=== PATIENT | female | born 1980 | race Caucasian/White ===

== ENCOUNTER 2018-10-08 16:12 | Inpatient (IN) | payer OTHER ==
[~2018-10-08] VITALS: Ht 165.1 cm; Wt 72.1 kg
--- NOTE | 2018-10-08 16:25 | NUR ---
While in ED, JASBIR Knox informed SW if she could see pt. since she is homeless. Pt. is a 38 year old Kittitian speaking woman who came to [facility] ED complaining of abdominal pain. ANATOLIY met with pt. in ED. Pt. was sitting in a chair waiting to be triaged. Administration staff assisted with Kittitian translation. Pt. states she is homeless. Pt. has been living in residential and is willing to go to a residential. Pt. is Diabetic and has been non-compliant with her insulin. Pt. was not yet examined by the ER physician. However, ANATOLIY did give pt. the [employer] [facility] list and explained the filler picker times and location. Pt. understood. Pt. was also given a TAP card and Homeless Patient Waiver Form was signed by the pt. in case pt. was discharged from the ED.
--- NOTE | 2018-10-08 16:51 | NUR ---
PT PRESENTED TO THE ER WITH A C/O ABD PAIN. PT WAS TRIAGED AND SEEN BY VOICE AND DATA TECHNICIAN. PT REC'D A TAP CARD AND USP INFORMATION.
--- NOTE | 2018-10-08 16:51 | NUR ---
PT IS NOW IN ER 7
[2018-10-08] MEDS ORDERED: ONDANSETRON HCL/PF 4 MG/2 ML VIAL IVP ONE (17:00)
[2018-10-08] MEDS ORDERED: IV NS 0.9% 1,000 ML BAG IV ONE ×2 (17:00→18:00)
[2018-10-08] MEDS ORDERED: MORPHINE SULFATE INJ 2 MG/ML DISP.SYRIN IV ONE (17:00)
--- NOTE | 2018-10-08 17:03 | NUR ---
BLOOD WAS DRAWN BY NEUROSURGICAL PHYSICIAN ASSISTANT.
[2018-10-08] MEDS ORDERED: ONDANSETRON HCL/PF 4 MG/2 ML VIAL ONE (17:06)
[2018-10-08] MEDS ORDERED: MORPHINE SULFATE INJ 4 MG/ML DISP.SYRIN ONE (17:06)
[2018-10-08 17:08] LABS: BASOPHILS % (AUTO) 0.2 % (0.0-2.0); EOSINOPHILS % (AUTO) 0.1 % (0.0-6.0); HEMATOCRIT 46 % (33-45); HEMOGLOBIN 14.8 g/dL (11.5-14.8); LYMPHOCYTES # (AUTO) 0.9 /CMM (0.8-4.8); LYMPHOCYTES % (AUTO) 5.3 % (20.0-44.0); MEAN CORPUSCULAR HGB CONC 32 g/dl (31.0-36.0); MEAN CORPUSCULAR VOLUME 93 fL (82-100); MONOCYTES # (AUTO) 0.9 /CMM (0.1-1.30); MONOCYTES % (AUTO) 5.5 % (2.0-12.0); NEUTROPHILS # (AUTO) 15.1 /CMM (1.8-8.9); NEUTROPHILS % (AUTO) 88.9 % (43.0-81.0); PLATELET COUNT (AUTO) 327 /CMM (150-450); RED BLOOD CELL COUNT(AUTO) 4.92 MIL/uL (4.0-5.2)
--- NOTE | 2018-10-08 17:12 | NUR ---
PT REC'D ALL MEDICATION ORDERED.
--- NOTE | 2018-10-08 17:14 | NUR ---
URINAL GIVEN BUT UNABLE TO PROVIDE URINE SPECIMEN.
[2018-10-08 17:30] LABS: CALCIUM, SERUM 8.8 mg/dL (8.5-10.1); CREATININE 0.8 mg/dL (0.6-1.3); POTASSIUM 4.3 mmol/L (3.5-5.1)
[2018-10-08 17:37] LABS: BILIRUBIN,DIRECT 0.1 mg/dL (0.0-0.2); BILIRUBIN,TOTAL 0.6 mg/dL (0.2-1.0)
[2018-10-08 17:38] LABS: ALBUMIN 3.6 g/dL (3.4-5.0); TOTAL PROTEIN, SERUM 8.2 g/dL (6.4-8.2)
[2018-10-08] MEDS ORDERED: INSULIN REGULAR, HUMAN 100 UNIT/ML 10 ML VIAL ONE (17:48)
[2018-10-08] MEDS ORDERED: INSULIN REGULAR, HUMAN 100 UNIT/ML 10 ML VIAL SQ ONE (18:00)
[2018-10-08 18:06] LABS: ABG BASE EXCESS -18.7 mmol/L; ABG OXYGEN SATURATION 96.4 % (92.0-98.5); ABG PCO2 22.5 mmHg (35.0-45.0); ABG PH 7.167 (7.350-7.450); AaDO2 19.8 mmHg; COHb 0.7 % (0.5-1.5); MetHb 0.5 % (0.0-1.5); O2Hb 95.2 % (94.0-97.0); SITE, ABG Left Brachial; VENT MODE, BG ROOM AIR
--- NOTE | 2018-10-08 18:35 | NUR ---
REPEAT ACCUCHECK OF 259MG/DL, BLANCA MICHELLE AWARE.
[2018-10-08 18:47] LABS: APPEARANCE,URINE Clear (CLEAR); BILIRUBIN,URINE Negative (NEGATIVE); BLOOD, URINE Negative Ery/uL (NEGATIVE); COLOR,URINE Yellow (YELLOW); KETONES,URINE >=160 (NEGATIVE); LEUKOCYTE ESTERASE ,URINE Negative (NEGATIVE); NITRITE, URINE Negative (NEGATIVE); PROTEIN,URINE 100 mg/dl (NEGATIVE); UGLUCOSE 500 MG/DL mg/dL (NEGATIVE); UROBILINOGEN,URINE 0.2 EU/dL (0.2)
[2018-10-08 18:56] LABS: BACTERIA,URINE Few /HPF (None Seen); RBC,URINE 0-2 /HPF (0-2); SQUAMOUS EPITHELIAL CELL,UR Few /HPF (None Seen)
--- NOTE | 2018-10-08 19:01 | NUR ---
CALLED FOR ICU BED
--- NOTE | 2018-10-08 19:15 | NUR ---
PT IS WHEELED TO CT SCAN VIA [facility].
--- NOTE | 2018-10-08 19:23 | NUR ---
REPORT GIVEN TO KELSEY HO FOR CHANDLER.
--- NOTE | 2018-10-08 19:26 | NUR ---
REC'D REPORT FROM KELSEY SEGAL FOR CHANDLER
--- NOTE | 2018-10-08 19:56 | NUR ---
PT RESTING COMFORTABLY IN BED. VSS, NO COMPLAINTS AT THIS TIME.
--- NOTE | 2018-10-08 20:45 | NUR ---
BED 256
--- NOTE | 2018-10-08 21:06 | NUR ---
REPORT GIVEN TO KELSEY CAMPOS FOR 256
--- NOTE | 2018-10-08 21:08 | NUR ---
PT IS HOMELESS, DOES NOT HAVE ANY HOME MEDS
--- NOTE | 2018-10-08 21:20 | NUR ---
ICU/RN- ADMITTED THIS 38 Y/O FEMALE FROM ER PER ACLS PROTOCOL, ROUTINE ICU ADMISSION CARE INITIATED. NURSING FOCUS:ALTERED NUTRITION R/T DIAGNOSIS DKA,HYPONATREMIA SECONDARY TO HYPOVOLEMIA. PT. IS AWAKE, ALERT, EXPRESSIVE OF NEEDS. PT. C/O ABDOMINAL PAIN, 04/23. WILL MEDICATE W/ PRN DILAUDID LATONIA. AND WILL REASSESS PRN EFFECTIVENESS. AFEBRILE. PTT. IS A FULL CODE. WILL START INSULIN DRIP PER DKA PROTOCOL.
--- NOTE | 2018-10-08 21:25 | NUR ---
PT TRANSFERRED TO FLOOR. REFUSED TO PUT ON GOWN
[2018-10-08] MEDS ORDERED: MAG HYDROX/AL HYDROX/SIMETH 30 ML UDC PO PRN (21:30)
[2018-10-08] MEDS ORDERED: MAGNESIUM HYDROXIDE 30 ML UDC PO PRN (21:30)
[2018-10-08] MEDS ORDERED: ACETAMINOPHEN 325 MG TABLET PO PRN (21:30)
[2018-10-08] MEDS ORDERED: ZOLPIDEM TARTRATE 5 MG TABLET PO PRN (21:30)
[2018-10-08 21:35] VITALS: BP 139/80
[2018-10-08] MEDS: IV NS 0.9% 1,000 ML IV PRN (21:46)
[2018-10-08] MEDS ORDERED: INSULIN REGULAR, HUMAN 100 UNIT/ML 3 ML VIAL ONE (21:55)
[2018-10-08] MEDS: HYDROMORPHONE INJ 2 MG/ML DISP.SYRIN IV PRN (21:55)
[2018-10-08 22:00] VITALS: BP 154/70
[2018-10-08] MEDS: BLOOD SUGAR DIAGNOSTIC 1 EACH STRIP IN SCH ×2 (22:17→23:04)
[2018-10-08] MEDS: INSULIN REGULAR, HUMAN 100 UNIT in IV NS 0.9% 99 ML IV PRN ×2 (22:19)
[2018-10-08 22:30] VITALS: BP 127/71
[2018-10-08 23:00] VITALS: BP 119/68
--- NOTE | 2018-10-08 23:48 | NUR ---
ICU/RN- SLEEPING AROUSABLE, REMAINS ON INSULIN DRIP AT 1 UNIT/HR PER DKA PROTOCOL. REPORT GIVEN TO KELSEY MONTES FOR CONTINUATION OF CARE.
[2018-10-09] VITALS (27 sets, daily range): BP systolic 104–149; BP diastolic 60–98
[2018-10-09] MEDS: BLOOD SUGAR DIAGNOSTIC 1 EACH STRIP IN SCH ×15 (00:12→23:00)
[2018-10-09 01:24] LABS: CALCIUM, SERUM 7.7 mg/dL (8.5-10.1); CREATININE 0.7 mg/dL (0.6-1.3); POTASSIUM 4.5 mmol/L (3.5-5.1)
[2018-10-09] MEDS: HYDROMORPHONE INJ 2 MG/ML DISP.SYRIN IV PRN ×4 (04:33→23:11)
[2018-10-09 04:38] LABS: BASOPHILS % (AUTO) 0.2 % (0.0-2.0); EOSINOPHILS % (AUTO) 0.7 % (0.0-6.0); HEMATOCRIT 39 % (33-45); HEMOGLOBIN 12.5 g/dL (11.5-14.8); LYMPHOCYTES # (AUTO) 1.7 /CMM (0.8-4.8); LYMPHOCYTES % (AUTO) 17.9 % (20.0-44.0); MEAN CORPUSCULAR HGB CONC 33 g/dl (31.0-36.0); MEAN CORPUSCULAR VOLUME 93 fL (82-100); MONOCYTES # (AUTO) 0.9 /CMM (0.1-1.30); MONOCYTES % (AUTO) 8.8 % (2.0-12.0); NEUTROPHILS # (AUTO) 7.1 /CMM (1.8-8.9); NEUTROPHILS % (AUTO) 72.4 % (43.0-81.0); PLATELET COUNT (AUTO) 278 /CMM (150-450); RED BLOOD CELL COUNT(AUTO) 4.17 MIL/uL (4.0-5.2); WHITE BLOOD COUNT (AUTO) 9.8 K/uL (4.3-11.0)
[2018-10-09 04:55] LABS: CALCIUM, SERUM 7.6 mg/dL (8.5-10.1); CREATININE 0.6 mg/dL (0.6-1.3); MAGNESIUM 1.7 mg/dL (1.8-2.4); PHOSPHORUS 2.5 mg/dL (2.5-4.9); POTASSIUM 4.3 mmol/L (3.5-5.1)
[2018-10-09 05:06] LABS: THYROID STIMULATING HORMONE 0.963 uIU/mL (0.358-3.74)
[2018-10-09] MEDS: IV NS 0.9% 1,000 ML IV PRN ×3 (05:16→21:54)
--- NOTE | 2018-10-09 07:23 | NUR ---
RN NOTES PATIENT REMAINED IN STABLE CONDITION CONTINUE ON INSULIN DRIP AT 0.5 UNIT/HR. LAST BS = 190 MG/DL , ALGORITHM 1 CONTINUE TO FOLLOW. SILKE MONITOR REMAINED IN ST HR 103 . AFEBRILE. PT REMAINED COMPLIANT. IVF O GOING. ALL NEEDS ATTENDED NO CHANGE OF MENTAL STATUS THROUGHOUT THE SHIFT. KEPT PT CLEAN AND DRY. ENDORSED CONTINUITY OF CARE TO AM NURSE.
[2018-10-09] MEDS: ONDANSETRON HCL/PF 4 MG/2 ML VIAL IVP PRN ×2 (07:54→23:00)
--- NOTE | 2018-10-09 08:00 | NUR ---
BLOCKERS SKIVER NOTES PATIENT SLEEPING BUT EASILY AROUSABLE TO VERBAL AND TACITLY STIMULI ,ON INSULIN DRIP AT 0.5 UNIT/HR. PER HOSPITAL PROTOCOL LAST BS = 190 MG/DL , ALGORITHM 1 CONTINUE TO FOLLOW. SILKE MONITOR REMAINED SR HR 91 . AFEBRILE.CONT ON IVF ORDERED, ALL NEEDS ATTENDED KEPT PT CLEAN AND DRY. LT FA HL AND RT HAND HL INTACT , BED IN LOWEST AND LOCKED POSITION , C\P HEADACHE AND NAUSEA ZOFRAN AND TYLENOL GIVEN, BED IN ,LOWEST AND LOCKED POSITION , CALL LIGHT WITHIN REACH , WILSON OF CARE DISUSED WITH PATIENT
[2018-10-09 08:26] LABS: CALCIUM, SERUM 7.7 mg/dL (8.5-10.1); CREATININE 0.6 mg/dL (0.6-1.3); POTASSIUM 4.3 mmol/L (3.5-5.1)
--- NOTE | 2018-10-09 08:49 | NUR ---
VALET NOTE DR MANCILLA AT BEDSIDE, CONT ON INSULIN DRIP ORDERED AWARE THAT PATIENT C\O NAUSEA AND HEADACHE ORDERED MOTRIN
[2018-10-09] MEDS: Magnesium 1GM/D5W 100ML PREMIX 100 ML IV SCH ×2 (08:55→09:57)
[2018-10-09] MEDS: IBUPROFEN 400 MG TABLET PO PRN (09:36)
--- NOTE | 2018-10-09 09:50 | NUR ---
WAITER/WAITRESS THIRD CLASS NOTE CONSENT FOR NM GASTRITIC EMPTING TEST OBTAINED, KEEP NPO AT THIS TIME, C\O STILL HEADACHE MOTRIN PO ORDERED OK WITH [employer] TO GIVE MOTRIN, ABLE TO URINE USING A BED STONE
--- NOTE | 2018-10-09 11:00 | NUR ---
CHECK OUT CLERK NOTE BLOOD SUGAR 247 MG\DL .INCREASED FROM 0.5 ML TO 1 UNITS\ML OF INSULIN DRIP ,WILL CONT TO MONITOR CLOSELY
--- NOTE | 2018-10-09 12:00 | NUR ---
FREIGHT AGENT NOTE REPORT GIVEN TO JULIO COLE
[2018-10-09] MEDS: PANTOPRAZOLE 40 MG VIAL IV SCH (12:47)
[2018-10-09 12:49] LABS: CALCIUM, SERUM 7.3 mg/dL (8.5-10.1); CREATININE 0.6 mg/dL (0.6-1.3); POTASSIUM 4.1 mmol/L (3.5-5.1)
[2018-10-09] MEDS: INSULIN REGULAR, HUMAN 100 UNIT in IV NS 0.9% 99 ML IV PRN ×2 (12:55)
--- NOTE | 2018-10-09 13:19 | NUR ---
DIRECTOR DIGITAL STRATEGY NOTES: INSULIN DRIP CONFIRMATION DR. ALVAREZ CALLED THROUGH [employer] AND NOTIFIED OF TRENDING BS ALONG WITH RECENT ANION GAP RESULT. PER MD "CONTINUE IV FLUIDS AT CURRENT RATE ALONG WITH PT'S CURRENT DRIP RATE ALGORITHM". PT'S 1300 BS WAS 246 AND IS CURRENTLY RECEIVING 1UN/HR PER ALGORITHM PROTOCOL. WILL CONTINUE TO MONITOR FIR S/S OF HYPO/HYPERGLYCEMIA
--- NOTE | 2018-10-09 15:30 | NUR ---
INCINERATOR PLANT LABORER NOTES: NUCLEAR MED PT TRANSPORTED DOWN TO NUCLEAR MED FOR GASTRIC EMPTYING STUDIES VIA ACLS TRANSPORT. VSS.
[2018-10-09 18:08] LABS: CALCIUM, SERUM 7.8 mg/dL (8.5-10.1); CREATININE 0.7 mg/dL (0.6-1.3); POTASSIUM 4.2 mmol/L (3.5-5.1)
--- NOTE | 2018-10-09 19:12 | NUR ---
SCRAP PICKER CLOSING NOTES PT REMAINS STABLE ON INSULIN DRIP. ALL NEEDS MET DURING SHIFT AND ORDERS CARRIED OUT ACCORDINGLY. ALL DUE MEDS GIVEN. PRN PAIN MEDICATION ADMINISTERED PT REPORTS OF A HEADACHE RATED 9/10. PRN CARE RENDERED. IV LINES REMAIN PATENT AND INTACT. PT CONTINUES TO TOLERATE NS INFUSION AND INSULIN DRIP WELL. INSULIN CURRENTLY INFUSION AT 2UNIT/HR PER ALGORITHM AND PT'S 1900 BS OF 266. SAFETY MEASURES REMAIN IN PLACE ENDORSE TO KELSEY QUIÑONEZ FOR CHANDLER
--- NOTE | 2018-10-09 19:30 | NUR ---
PNEUMATIC RIVETER NOTE RECEIVED PT A/O X3-4 IN BED WITH NOTED MILD AGITATION AND NICARAGUAN SPEAKING. ON ROOM AIR AND SATURATING 99%. BREATHING REGULAR AND UNLABORED. C/O HEADACHE 02/20 PAIN. PREVIOUS RN GAVE DILAUDID IV @ 1900 WITHOUT RELIEF AND PT ASKING FOR OTHER PAIN MEDICATION. WILL GIVE ALTERNATIVE MEDICATION FOR PAIN. IV FLUIDS AND INSULIN DRIP INFUSING AT THIS TIME. NO COMPLAIN OF NAUSEA/ VOMIT AT THIS TIME. CALL LIGHT WITHIN REACH. WILL CONTINUE TO MONITOR.
[2018-10-09] MEDS: HYDROCODONE/APAP 5/325MG 1 EACH TABLET PO PRN (20:00)
--- NOTE | 2018-10-09 21:59 | NUR ---
PROMOTIONS EXECUTIVE NOTE PT C/O ITCHING ALL OVER. SPOKE WITH WIRE HARNESS DESIGN ENGINEER DR LYNN WITH ORDERS FOR BENADRYL 25MG IVP Q6H PRN. ALSO RECEIVED ORDERS TO CHANGE INSULIN DRIP PROTOCOL TO BS X 1.5/100 AND BMP Q6H. ORDERS NOTED AND CARRIED OUT. WILL CONTINUE TO MONITOR.
[2018-10-09] MEDS ORDERED: INSULIN REGULAR, HUMAN 100 UNIT in IV NS 0.9% 99 ML IV PRN ×2 (22:00)
[2018-10-09] MEDS: diphenhydrAMINE HCL 50 MG/ML VIAL IV PRN (23:00)
[2018-10-10] VITALS (22 sets, daily range): BP systolic 98–150; BP diastolic 56–96
[2018-10-10 00:38] LABS: CALCIUM, SERUM 7.5 mg/dL (8.5-10.1); CREATININE 0.7 mg/dL (0.6-1.3); POTASSIUM 3.6 mmol/L (3.5-5.1)
[2018-10-10] MEDS: BLOOD SUGAR DIAGNOSTIC 1 EACH STRIP IN SCH ×8 (01:08→21:20)
[2018-10-10] MEDS: HYDROCODONE/APAP 5/325MG 1 EACH TABLET PO PRN (02:02)
[2018-10-10] MEDS: HYDROMORPHONE INJ 2 MG/ML DISP.SYRIN IV PRN ×5 (05:51→21:12)
[2018-10-10] MEDS: IV D5/0.45 NACL 1,000 ML IV PRN ×3 (06:00→21:12)
[2018-10-10 06:17] LABS: CALCIUM, SERUM 7.9 mg/dL (8.5-10.1); CREATININE 0.5 mg/dL (0.6-1.3); POTASSIUM 3.7 mmol/L (3.5-5.1)
--- NOTE | 2018-10-10 07:21 | NUR ---
VEHICLE INSPECTOR NOTE PT REMAINED STABLE DURING SHIFT. NO ACUTE DISTRESS NOTED. INSULIN DRIP STILL INFUSING. D5 1/2 NS INFUSING @125 ML/HR. ALL NEEDS ATTENDED TO PROMPTLY. ALL SAFETY MEASURES IN PLACE. CALL LIGHT WITHIN REACH. WILL ENDORSE TO NEXT SHIFT FOR CONTINUITY OF CARE.
[2018-10-10] MEDS: diphenhydrAMINE HCL 50 MG/ML VIAL IV PRN (07:52)
[2018-10-10] MEDS: ONDANSETRON HCL/PF 4 MG/2 ML VIAL IVP PRN ×2 (07:52→19:47)
[2018-10-10] MEDS ORDERED: DEXTROSE 50%-WATER 50 ML DISP.SYRIN IV PRN (08:00)
[2018-10-10] MEDS: INSULIN GLARGINE, 100 UNIT/ML CARTRIDGE SQ SCH ×2 (08:51→21:45)
[2018-10-10] MEDS: PANTOPRAZOLE 40 MG VIAL IV SCH (12:21)
[2018-10-10] MEDS: INSULIN REGULAR, HUMAN 100 UNIT/ML 3 ML VIAL SQ PRN ×2 (12:30→17:44)
--- NOTE | 2018-10-10 12:42 | NUR ---
ANATOLIY met with the pt. bedside for an assessment. Pt. is Telugu speaking. SW had BALA Cabral assist with translation. Pt. refused to cooperate and stated she will only speak to one SW. SW explained to pt. that she doesn't speak Telugu. Pt. still refused to cooperate. ANATOLIY requested for ANATOLIY Suresh, Telugu speaking to assist in seeing the pt. According to ANATOLIY Richard, pt. has been homeless for a year. Pt. is very guarded and paranoid. Pt. has been staying at the [facility]. However, when ANATOLIY offered [place] halfway and homeless resources pt. declined stating she doesn't want anything. Pt. kept saying to ANATOLIY, " why are you asking questions."
--- NOTE | 2018-10-10 19:09 | NUR ---
TRANSFERRED BY WHEELCHAIR TO 113-2 ALL BELONGINGS WITH PT, REPORT GIVEN TO NIGHT RN
--- NOTE | 2018-10-10 19:20 | NUR ---
MS/RN INITIAL NOTES RECEIVED PT FROM ICU, VIA WHEELCHAIR, PT ABLE TO AMBULATE WITH STANDBY ASSIST. A/OX4. ON ROOM AIR, NO SOB NOTED. WITH C/O BEING NAUSEATED AND HEADACHE. NO S/SX OF HYPO HYPERGLYCEMIA. RHAND G20 IV INTACT AND PATENT. ORIENTED TO ROOM AND USE OF CALL LIGHT. SAFETY MEASURES IN PLACED. CALL LIGHT WITHIN EASY REACH. WILL CONT TO MONITOR
[2018-10-10] MEDS: *INSULIN REGULAR(HUMULIN R)HUM 100 UNIT/ML VIAL SQ PRN (21:43)
[2018-10-11] MEDS: ONDANSETRON HCL/PF 4 MG/2 ML VIAL IVP PRN ×3 (02:21→16:26)
[2018-10-11] MEDS: HYDROMORPHONE INJ 2 MG/ML DISP.SYRIN IV PRN ×3 (02:26→12:56)
[2018-10-11 04:00] VITALS: BP 120/70
--- NOTE | 2018-10-11 07:01 | NUR ---
RN NOTES PT IN STABLE CONDITION. NO ACUTE CHANGES THROUGHOUT SHIFT. ALL NEEDS ANTICIPATED. IVF D51/2 NS AT 125ML/HR STILL RUNNING ON RHAND G20 IV. ALL NEEDS ANTICIPATED. SAFETY MEASURES OBSERVED AT ALL TIMES. ENDORSED TO AM SHIFT RN FOR CHANDLER
[2018-10-11] MEDS: BLOOD SUGAR DIAGNOSTIC 1 EACH STRIP IN SCH ×4 (07:48→22:04)
[2018-10-11] MEDS: INSULIN REGULAR, HUMAN 100 UNIT/ML 3 ML VIAL SQ PRN ×2 (07:51→12:21)
[2018-10-11 08:00] VITALS: BP 139/82
[2018-10-11] MEDS: IV D5/0.45 NACL 1,000 ML IV PRN (11:01)
[2018-10-11] MEDS: PANTOPRAZOLE 40 MG VIAL IV SCH (12:20)
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
--- NOTE | 2018-10-11 14:00 | NUR ---
MS RN NOTES PER DR ALVAREZ, [place] FOR PT TO STAY ONE MORE DAY. PT C/O NOT FEELING WELL. N/V IN AM AFTER BREAKFAST. PER , D/C DILMAGALI. ONLY TYLENOL FOR PAIN.
[2018-10-11 16:00] VITALS: BP 150/88
--- NOTE | 2018-10-11 18:30 | NUR ---
MS RN NOTES UNABLE TO SCAN HUMULIN R INSULIN FOR AC COVERAGE OF BLOOD GLUCOSE 161 MG/DL. WILL COVER WITH 4 UNITS INSULIN. CHARGE NURSE SOON AWARE. PHARM AWARE.
--- NOTE | 2018-10-11 19:12 | NUR ---
MS RN NOTES ALL NEEDS MET DURING SHIFT AND ORDERS CARRIED OUT ACCORDINGLY. ALL DUE MEDS GIVEN. PRN PAIN MEDICATION ADMINISTERED PT REPORTS OF A HEADACHE RATED 9/10. PRN CARE RENDERED. IV LINE REMAIN PATENT AND INTACT. PT CONTINUES TO TOLERATE NS INFUSION WELL. SAFETY MEASURES REMAIN IN PLACE ENDORSE TO PM RN FOR CHANDLER
[2018-10-11] MEDS: IBUPROFEN 400 MG TABLET PO PRN (19:46)
[2018-10-11 20:00] VITALS: BP 137/87
[2018-10-11] MEDS: INSULIN GLARGINE, 100 UNIT/ML CARTRIDGE SQ SCH (22:08)
[2018-10-11] MEDS: *INSULIN REGULAR(HUMULIN R)HUM 100 UNIT/ML VIAL SQ PRN (22:09)
[2018-10-12 04:00] VITALS: BP 133/86
[2018-10-12] MEDS: IBUPROFEN 400 MG TABLET PO PRN (07:40)
[2018-10-12] MEDS: ONDANSETRON HCL/PF 4 MG/2 ML VIAL IVP PRN (07:40)
[2018-10-12] MEDS: BLOOD SUGAR DIAGNOSTIC 1 EACH STRIP IN SCH ×2 (07:48→12:20)
[2018-10-12 08:00] VITALS: BP 134/92
[2018-10-12] MEDS: INSULIN REGULAR, HUMAN 100 UNIT/ML 3 ML VIAL SQ PRN (08:29)
--- NOTE | 2018-10-12 09:03 | NUR ---
RN AM SHIFT NOTE PATIENT IN BED ALERT AND ORIENTED. IV PATENT AND INTACT. ABLE TO AMBULATE BY HERSELF. REQUEST TO TAKE SHOWER. ASSESSED ABILITY TO AMBULATE ON OWN, VITALS WNL BLOOD SUGAR CHECKED. INNAPROPRITAE LANGUAGE AND DISRESPECTFUL TO WELL DRILL OPERATOR ROTARY DRILL AND NURSE. PATIENT VERBALIZED SHE SPOKE WITH DIVIDING MACHINE OPERATOR AND CASE MANAGEMENT YESTERDAY AND DOES NOT WANT TO SPEAK WITH THEM AGAIN TODAY. AWAITING POSSIBLE DISCHARGE ORDERS. CONTINUE TO MONITOR.
--- NOTE | 2018-10-12 10:43 | NUR ---
patient calm ,had shower and explained the discharge ,ordered early tray and bus pass card given,refused resources confirmed by social media assistant ALIREZA.IV H.L D/C.refused longterm confimed by ssw. patient agreed to leave hospital after lunch.
--- NOTE | 2018-10-12 11:03 | NUR ---
SW completed Homeless discharge checklist. SW was unable to ascertain if pt. has "people in the community who know her" since pt. was uncooperative with the SW and did not want to provide any meaningful information.
--- NOTE | 2018-10-12 13:12 | NUR ---
SHOE LACER NOTE PATIENT VITALS STABLE WNL. ATE LUNCH AND PROVIDED DISCHARGE PAPERWORK TO PATIENT. SUPERVISOR WATER TREATMENT PLANT SAW PATIENT DURING VISIT TO HOSPITAL AND PATIENT REFUSED ASSISTANCE AND WAS UNCOOPERATIVE. BELONGINGS GATHERED AND ASSISTED EXIT.
== END 2018-10-12 13:11 | disposition home or self-care (01) | DRG 48 ==
LOC: ER 16:17 → ICU 20:49 → MEDSG1 10-10 19:06
PROVIDERS: ADMIT Nurse Practitioner Acute Care; ATTEND Internal Medicine
DX: E10.43 Type 1 diabetes mellitus with diabetic autonomic (poly)neuropathy (principal); K85.90 Acute pancreatitis without necrosis or infection, unspecified; R65.10 Systemic inflammatory response syndrome (SIRS) of non-infectious origin without acute organ dysfunction; N13.30 Unspecified hydronephrosis; E87.1 Hypo-osmolality and hyponatremia; E10.65 Type 1 diabetes mellitus with hyperglycemia; E10.10 Type 1 diabetes mellitus with ketoacidosis without coma; K31.84 Gastroparesis; K21.9 Gastro-esophageal reflux disease without esophagitis; Z59.0 Homelessness; K27.9 Peptic ulcer, site unspecified, unspecified as acute or chronic, without hemorrhage or perforation; Z91.14 Patient's other noncompliance with medication regimen; I10 Essential (primary) hypertension; Z90.49 Acquired absence of other specified parts of digestive tract; Z91.19 Patient's noncompliance with other medical treatment and regimen; N83.202 Unspecified ovarian cyst, left side
CPT/HCPCS: 36415; 36600; 71045-TC; 80048-TC; 80061-TC; 80076-TC; 81000-TC; 82010-TC; 82803-TC; 82962-TC; 83690-TC; 83735-TC; 83935-TC; 84100-TC; 84443-TC; 84703-TC; 85025-TC; 87081-TC; A9541; C9113; G0378; J1170; J1200; J1815; J2270; J2405; J3475; J3490; J7030

== ENCOUNTER 2019-02-24 00:53 | Inpatient (IN) | payer OTHER ==
[2019-02-24] VITALS (25 sets, daily range): BP systolic 85–159; BP diastolic 35–111
[~2019-02-24] VITALS: Ht 157.5 cm; Wt 67.6 kg
--- NOTE | 2019-02-24 01:00 | NUR ---
PT [id number] FROM [address], PER EMS PT C/O ANXIETY/PANIC ATTACK X 1 DAY. PT AXO4. RESPIRATIONS TACHYPNIC. PT PUT ON THE COMPRESSOR ASSEMBLER AND PULSE OX. PENDING EVAL FROM ER .
[2019-02-24] MEDS ORDERED: IV NS 0.9% 1,000 ML BAG IV STA ×2 (01:27→03:08)
[2019-02-24 02:42] LABS: BASOPHILS # (AUTO) 0.1 /CMM (0.0-0.2); BASOPHILS % (AUTO) 0.4 % (0.0-2.0); EOSINOPHILS % (AUTO) 0.4 % (0.0-6.0); HEMATOCRIT 50 % (33-45); LYMPHOCYTES # (AUTO) 1.3 /CMM (0.8-4.8); LYMPHOCYTES % (AUTO) 5.7 % (20.0-44.0); MEAN CORPUSCULAR HGB CONC 30 g/dl (31.0-36.0); MEAN CORPUSCULAR VOLUME 100 fL (82-100); MONOCYTES # (AUTO) 0.8 /CMM (0.1-1.30); MONOCYTES % (AUTO) 3.7 % (2.0-12.0); NEUTROPHILS # (AUTO) 20.3 /CMM (1.8-8.9); NEUTROPHILS % (AUTO) 89.8 % (43.0-81.0); PLATELET COUNT (AUTO) 307 /CMM (150-450); RED BLOOD CELL COUNT(AUTO) 4.97 MIL/uL (4.0-5.2); WHITE BLOOD COUNT (AUTO) 22.6 K/uL (4.3-11.0)
[2019-02-24 02:49] LABS: ALBUMIN 3.4 g/dL (3.4-5.0); BILIRUBIN,TOTAL 0.4 mg/dL (0.2-1.0); CALCIUM, SERUM 8.8 mg/dL (8.5-10.1); CREATININE 1.1 mg/dL (0.6-1.3); POTASSIUM 5.3 mmol/L (3.5-5.1); TOTAL PROTEIN, SERUM 8.6 g/dL (6.4-8.2)
[2019-02-24] MEDS ORDERED: INSULIN REGULAR, HUMAN 100 UNIT/ML 10 ML VIAL ONE (03:18)
[2019-02-24] MEDS ORDERED: INSULIN REGULAR, HUMAN 100 UNIT in IV NS 0.9% 99 ML IV PRN ×2 (03:30)
[2019-02-24 03:32] LABS: APPEARANCE,URINE Clear (CLEAR); BILIRUBIN,URINE SMALL (NEGATIVE); BLOOD, URINE Large Ery/uL (NEGATIVE); COLOR,URINE Yellow (YELLOW); KETONES,URINE >=160 (NEGATIVE); LEUKOCYTE ESTERASE ,URINE Negative (NEGATIVE); NITRITE, URINE Negative (NEGATIVE); PROTEIN,URINE 100 mg/dl (NEGATIVE); UGLUCOSE 500 MG/DL mg/dL (NEGATIVE); UROBILINOGEN,URINE 0.2 EU/dL (0.2)
[2019-02-24] MEDS ORDERED: MORPHINE SULFATE INJ 2 MG/ML DISP.SYRIN ONE (03:44)
[2019-02-24] MEDS ORDERED: MORPHINE SULFATE INJ 2 MG/ML DISP.SYRIN IV STA (03:44)
[2019-02-24 03:56] LABS: OSMOLALITY,SERUM 325 mOS/kg (278-305)
[2019-02-24 04:03] LABS: BACTERIA,URINE None seen /HPF (None Seen); RBC,URINE 0-2 /HPF (0-2); SQUAMOUS EPITHELIAL CELL,UR Moderate /HPF (None Seen); WBC,URINE 0-2 /HPF (0-3)
[2019-02-24 04:04] LABS: HYALINE CASTS, URINE Few /LPF (None Seen); MUCUS,URINE Few /LPF (None Seen); URINE AMORPHOUS URATE Few /HPF (None Seen)
--- NOTE | 2019-02-24 04:13 | NUR ---
REPORT GIVEN TO TREVON COLE FOR CHANDLER.
--- NOTE | 2019-02-24 04:40 | NUR ---
SANITARY INSPECTOR: RECEIVED PT. LETHARGIC ON ROOM AIR FOR DX OF DKA. ALERT ORIENTED X 3, ABLE TO FOLLOW SIMPLE COMMANDS. RECEIVED ON INSULIN DRIP AT 6U/HR FROM ED. ST ON RECOVERY OPERATOR. RECTAL TEMP. AT 95.6. WARM BLANKETS APPLIED. NO ACUTE DISTRESS. SKIN ASSESSMENT DONE WT NO SKIN BREAKDOWN. F/C PATENT AND INTACT DRAINING CLEAR YELLOW URINE TO GRAVITY. AWAITING MD ORDERS. SAFETY PRECAUTION NOTED. HOB AT 35 DEGREES. WILL CONTINUE TO MONITOR.
[2019-02-24] MEDS ORDERED: ENALAPRILAT DIHYD. (2.5MG/ML) 1.25 MG/ML VIAL IV PRN (06:00)
[2019-02-24] MEDS ORDERED: ZOLPIDEM TARTRATE 5 MG TABLET PO PRN (06:00)
[2019-02-24] MEDS ORDERED: ACETAMINOPHEN 325 MG TABLET PO PRN (06:00)
--- NOTE | 2019-02-24 06:25 | NUR ---
SWITCHBOARD CLERK: CLARIFIED WT DR. ARNDT FOR INSULIN DRIP FOR ALGORITHM #2 PER DKA PROTOCOL AND ACCUCHEK HOURLY.
[2019-02-24] MEDS: METOPROLOL TARTRATE 25 MG TABLET PO SCH ×3 (06:31→21:00)
[2019-02-24] MEDS: IV 1/2NS 1000 ML 1,000 ML IV PRN ×2 (06:33→18:20)
[2019-02-24] MEDS: MORPHINE SULFATE INJ 2 MG/ML DISP.SYRIN IV PRN (06:35)
[2019-02-24] MEDS: INSULIN REGULAR, HUMAN 100 UNIT in IV NS 0.9% 99 ML IV PRN ×4 (06:36→18:24)
[2019-02-24 06:58] LABS: BASOPHILS % (AUTO) 0.1 % (0.0-2.0); EOSINOPHILS % (AUTO) 0.1 % (0.0-6.0); HEMATOCRIT 48 % (33-45); HEMOGLOBIN 14.6 g/dL (11.5-14.8); LYMPHOCYTES # (AUTO) 1.2 /CMM (0.8-4.8); LYMPHOCYTES % (AUTO) 4.5 % (20.0-44.0); MEAN CORPUSCULAR HGB CONC 31 g/dl (31.0-36.0); MEAN CORPUSCULAR VOLUME 99 fL (82-100); MONOCYTES # (AUTO) 1.4 /CMM (0.1-1.30); MONOCYTES % (AUTO) 5.4 % (2.0-12.0); NEUTROPHILS # (AUTO) 23.7 /CMM (1.8-8.9); NEUTROPHILS % (AUTO) 89.9 % (43.0-81.0); PLATELET COUNT (AUTO) 275 /CMM (150-450); RED BLOOD CELL COUNT(AUTO) 4.83 MIL/uL (4.0-5.2); WHITE BLOOD COUNT (AUTO) 26.3 K/uL (4.3-11.0)
[2019-02-24 07:00] LABS: CHOLESTEROL 290 mg/dL (<200); HDL CHOLESTEROL 28 mg/dL (40-60); LDL 206 mg/dL (0-99); THYROID STIMULATING HORMONE 0.424 uIU/mL (0.358-3.74); TRIGLYCERIDES 312 mg/dL (30-150)
[2019-02-24] MEDS: BLOOD SUGAR DIAGNOSTIC 1 EACH STRIP IN SCH ×16 (07:00→22:03)
[2019-02-24 07:01] LABS: ALANINE AMINOTRANSFERASE 14 U/L (12-78); ALBUMIN 3.2 g/dL (3.4-5.0); ALKALINE PHOSPHATASE 135 U/L (46-116); ASPARTATE AMINOTRANSFERASE 9 U/L (15-37); BILIRUBIN,TOTAL 0.3 mg/dL (0.2-1.0); CHLORIDE 105 mmol/L (98-107); CREATININE 1.2 mg/dL (0.6-1.3); GLUCOSE 344 mg/dL (74-106); MAGNESIUM 1.9 mg/dL (1.8-2.4); PHOSPHORUS 4.5 mg/dL (2.5-4.9); POTASSIUM 4.6 mmol/L (3.5-5.1); SODIUM SERUM 138 mmol/L (136-145); TOTAL PROTEIN, SERUM 7.9 g/dL (6.4-8.2); UREA NITROGEN, BLOOD 23 mg/dL (7-18)
[2019-02-24 07:15] LABS: CARBON DIOXIDE 4 mmol/L (21-32)
--- NOTE | 2019-02-24 08:00 | NUR ---
REC'D REPORT PT IS ALERT, AWAKE AND ORIENTED TIMES FOUR OVERALL APPEARANCES FAIR HAS A BELLAMY DRAINING YELLOW URINE WITH SEDIMENT SELF CARE IS ON AN INSULIN DRIP AND REC'ING 1/2NS AT 100ML/HR DENIES PAIN/DISCOMFORT TEACHING STARTED R/T INSULIN AND INDEPENDENT ON CKING HER OWN GLUCOSE LEVEL PT REFUSED STATED THAT IS A NURSE JOB, IS ST ON THE MONITOR COMFORT AND SAFETY MAINTAINED
[2019-02-24] MEDS: PANTOPRAZOLE 40 MG TABLET.DR PO SCH (08:40)
[2019-02-24] MEDS ORDERED: VANCOMYCIN 0.75 GM in IV D5W 250 ML IV SCH (09:00)
[2019-02-24] MEDS ORDERED: FEE PK DOSING 1 MIN EA MC ONE (09:03)
[2019-02-24] MEDS: HYDROCODONE/APAP 5/325MG 1 EACH TABLET PO PRN (09:25)
[2019-02-24] MEDS: VANCOMYCIN 0.75 GM in IV NS 0.9% 250 ML IV SCH ×2 (11:16→22:05)
--- NOTE | 2019-02-24 11:30 | NUR ---
PT WAS GIVEN NORCO FOR GEN PAIN STATED MORPHINE DOESN'T WORK DENIES ALLERGY MED TEACHING GIVEN MED WAS VERY EFFECTIVE
[2019-02-24] MEDS: PIPERACILLIN /TAZOBACTAM 3.375 G in IV D5W 50 ML IV SCH ×3 (12:28→23:35)
[2019-02-24 13:15] LABS: CALCIUM, SERUM 7.6 mg/dL (8.5-10.1)
--- NOTE | 2019-02-24 16:00 | NUR ---
PT WENT FOR A CT ABD YAHAIRA OPTICAL EFFECTS LINE UP PERSON STATED PT C/O ABD PAIN AND HER ABD WAS TENDER TO TOUCH RESULT PENDING NO C/O VOICED TO THIS PARTY PLAN SALES HOST/HOSTESS
[2019-02-24 16:38] LABS: CALCIUM, SERUM 7.8 mg/dL (8.5-10.1); CREATININE 1.1 mg/dL (0.6-1.3); POTASSIUM 3.7 mmol/L (3.5-5.1)
--- NOTE | 2019-02-24 19:42 | NUR ---
REPORT GIVEN TO INCOMING NURSE ALL QUESTIONS ANSWERED PT CONDITION REMAINS STABLE NURSE IS AWARE OF THE BMP DUE FOR 2100 R/T PT INSULIN DRIP
--- NOTE | 2019-02-24 20:00 | NUR ---
PROJECT ADMIN - NOTES - RECEIVED PT IN BED ON ROOM AIR FOR DX OF DKA. ALERT ORIENTED X 3, ABLE TO FOLLOW SIMPLE COMMANDS. RECEIVED ON INSULIN DRIP AT 3 U/HR. SR/ST ON IN ROOM DINING SERVER. NO ACUTE DISTRESS. SKIN ASSESSMENT DONE WT NO SKIN BREAKDOWN. F/C PATENT AND INTACT DRAINING CLEAR YELLOW URINE TO GRAVITY. AWAITING MD ORDERS. SAFETY PRECAUTION NOTED. HOB AT 35 DEGREES. WILL CONTINUE TO MONITOR.
[2019-02-24 20:54] LABS: POTASSIUM 3.5 mmol/L (3.5-5.1)
[2019-02-24] MEDS ORDERED: DEXTROSE 50%-WATER 50 ML DISP.SYRIN IV PRN (22:00)
[2019-02-24] MEDS ORDERED: *INSULIN REGULAR(HUMULIN R)HUM 100 UNIT/ML VIAL SQ PRN (22:00)
--- NOTE | 2019-02-24 22:00 | NUR ---
PER DAIRY QUALITY ASSURANCE OFFICER ED, DR ARNDT GAVE ORDER TO D/C INSULIN GTT, BLOOD GLUCOSE 208. WILL CONTINUE TO MONITOR
[2019-02-24] MEDS: INSULIN REGULAR, HUMAN 100 UNIT/ML 3 ML VIAL SQ PRN (22:06)
[2019-02-25] VITALS (24 sets, daily range): BP systolic 89–134; BP diastolic 26–87
[2019-02-25] MEDS: HYDROCODONE/APAP 5/325MG 1 EACH TABLET PO PRN (03:56)
[2019-02-25 05:04] LABS: BASOPHILS % (AUTO) 0.3 % (0.0-2.0); HEMATOCRIT 38 % (33-45); HEMOGLOBIN 12.5 g/dL (11.5-14.8); LYMPHOCYTES # (AUTO) 0.8 /CMM (0.8-4.8); LYMPHOCYTES % (AUTO) 5.2 % (20.0-44.0); MEAN CORPUSCULAR HGB CONC 33 g/dl (31.0-36.0); MEAN CORPUSCULAR VOLUME 93 fL (82-100); MONOCYTES # (AUTO) 0.8 /CMM (0.1-1.30); MONOCYTES % (AUTO) 5.5 % (2.0-12.0); NEUTROPHILS # (AUTO) 13.8 /CMM (1.8-8.9); PLATELET COUNT (AUTO) 199 /CMM (150-450); RED BLOOD CELL COUNT(AUTO) 4.09 MIL/uL (4.0-5.2); WHITE BLOOD COUNT (AUTO) 15.5 K/uL (4.3-11.0)
[2019-02-25 05:17] LABS: CALCIUM, SERUM 7.8 mg/dL (8.5-10.1); CREATININE 0.9 mg/dL (0.6-1.3); MAGNESIUM 1.4 mg/dL (1.8-2.4); POTASSIUM 3.4 mmol/L (3.5-5.1)
[2019-02-25] MEDS: PIPERACILLIN /TAZOBACTAM 3.375 G in IV D5W 50 ML IV SCH ×4 (06:05→23:04)
[2019-02-25] MEDS: IV 1/2NS 1000 ML 1,000 ML IV PRN ×2 (06:18→17:11)
[2019-02-25] MEDS: MORPHINE SULFATE INJ 2 MG/ML DISP.SYRIN IV PRN ×4 (06:41→23:57)
--- NOTE | 2019-02-25 07:15 | NUR ---
VISITOR SERVICES INFORMATION ASSISTANT INITIAL NOTES PT RECEIVED IN STABLE CONDITION. A/O X4. NO SOB OR ACUTE SIGNS OF DISTRESS NOTED. BREATHING IS EVEN AND UNLABORED. PER NIGHTSHIFT RN INSULIN DRIP DISCONTINUED AROUND 22OO. PT NOW ON AN AGGRESSIVE SLINGING SCALE WITH A CURRENT BS OF 272. WILL ADMINISTER SQ INSULIN ONCE PT IS READY TO EAT. F/C C/D/I AND DRAINING TO GRAVITY. VSS. BED IN LOW LOCKED POSITION, SIDE RAILS UP X2, CALL LIGHT WITHIN REACH. WILL CONTINUE TO MONITOR
[2019-02-25] MEDS: INSULIN REGULAR, HUMAN 100 UNIT/ML 3 ML VIAL SQ PRN ×4 (07:57→21:12)
[2019-02-25] MEDS: PANTOPRAZOLE 40 MG TABLET.DR PO SCH (08:01)
[2019-02-25] MEDS: ONDANSETRON HCL/PF 4 MG/2 ML VIAL IVP PRN ×2 (08:01→13:18)
[2019-02-25] MEDS: BLOOD SUGAR DIAGNOSTIC 1 EACH STRIP IN SCH ×4 (08:01→21:10)
[2019-02-25] MEDS: METOPROLOL TARTRATE 25 MG TABLET PO SCH ×2 (09:00→21:00)
[2019-02-25] MEDS ORDERED: POTASSIUM CHLORIDE 20 MEQ TAB.PRT.SR PO SCH (10:30)
[2019-02-25] MEDS: Magnesium 1GM/D5W 100ML PREMIX 100 ML IV SCH ×4 (10:59→14:32)
[2019-02-25] MEDS: VANCOMYCIN 0.75 GM in IV NS 0.9% 250 ML IV SCH ×2 (10:59→21:54)
[2019-02-25] MEDS ORDERED: DEXTROSE 50%-WATER 50 ML DISP.SYRIN IV PRN (12:00)
--- NOTE | 2019-02-25 12:27 | NUR ---
BOTTOM SANDER NOTES: WOUND CARE CONSULT SMALL OPEN SORE WAS NOTED ON PT'S LEFT VAGINAL FLAP. PER PT "IT IS THE RESULT OF A PREVIOUS ABSCESS DIAGNOSED A FEW MONTHS PRIOR. XEROFORM AND AN ABD PAD APPLIED FOR CURRENT MANAGEMENT. PT REFUSED PHOTOS, AND AGREED TO BE SEEN BY WOUND NURSE FOR FURTHER MANAGEMENT
--- NOTE | 2019-02-25 15:07 | NUR ---
Social service consult requested by Dr. Dickinson for homelessness. Pt. is a 38 year old female who was admitted to [facility] for DKA. SW is familiar with the pt. from a previous admission in September 2018. SW met with pt. bedside. Pt. was sleeping but easily awakened. Pt. requested for SW to come back at a later time. SW to assess pt. at a later time when pt. is more awake and cooperative. Per pts' RN Afsatu, pt. to be downgraded from ICU.
[2019-02-25] MEDS: LACTOBACILLUS RHAMNOSUS GG 1 EACH CAP.SPRINK PO SCH (17:12)
[2019-02-25] MEDS: INSULIN ASPART/LISPRO 100 UNIT/ML CARTRIDGE SQ SCH (17:26)
--- NOTE | 2019-02-25 19:03 | NUR ---
REFORMATORY ATTENDANT CLOSING NOTES PT REMAIN STABLE .BS REGULATED WITH SS MANAGEMENT. VSS. NO ACUTE CHANGES THROUGHOUT SHIFT. SAFETY MEASURES IN PLACE. WILL ENDORSE TO NIGHTSHIFT RN FOR CHANDLER
--- NOTE | 2019-02-25 20:00 | NUR ---
STREETCAR CONDUCTOR - NOTES - PT RECEIVED IN STABLE CONDITION. A/O X4. NO SOB OR ACUTE SIGNS OF DISTRESS NOTED. BREATHING IS EVEN AND UNLABORED. PT ON A MILD SLIDING SCALE. F/C C/D/I AND DRAINING TO GRAVITY. VSS. BED IN LOW LOCKED POSITION, SIDE RAILS UP X2, CALL LIGHT WITHIN REACH. WILL CONTINUE TO MONITOR
[2019-02-25] MEDS: INSULIN GLARGINE, 100 UNIT/ML CARTRIDGE SQ SCH (21:13)
[2019-02-26] VITALS (15 sets, daily range): BP systolic 103–136; BP diastolic 61–86
[2019-02-26 04:51] LABS: CALCIUM, SERUM 7.8 mg/dL (8.5-10.1); CREATININE 0.7 mg/dL (0.6-1.3); MAGNESIUM 1.9 mg/dL (1.8-2.4)
[2019-02-26] MEDS: PIPERACILLIN /TAZOBACTAM 3.375 G in IV D5W 50 ML IV SCH ×4 (05:46→23:19)
[2019-02-26] MEDS: IV 1/2NS 1000 ML 1,000 ML IV PRN (05:47)
[2019-02-26] MEDS: MORPHINE SULFATE INJ 2 MG/ML DISP.SYRIN IV PRN ×4 (06:53→21:24)
[2019-02-26] MEDS: BLOOD SUGAR DIAGNOSTIC 1 EACH STRIP IN SCH ×4 (07:30→21:22)
[2019-02-26] MEDS: PANTOPRAZOLE 40 MG TABLET.DR PO SCH (07:32)
[2019-02-26] MEDS: INSULIN REGULAR, HUMAN 100 UNIT/ML 3 ML VIAL SQ PRN ×4 (07:36→21:25)
[2019-02-26] MEDS ORDERED: VANCOMYCIN 1 GM in IV D5W 250 ML IV ONE (09:00)
[2019-02-26] MEDS: LACTOBACILLUS RHAMNOSUS GG 1 EACH CAP.SPRINK PO SCH ×2 (09:04→17:19)
[2019-02-26] MEDS: METOPROLOL TARTRATE 25 MG TABLET PO SCH ×2 (09:04→21:16)
--- NOTE | 2019-02-26 09:04 | NUR ---
WOUND CARE CONSULT: PT PRESENTS WITH LEFT PERINEUM INDURATION WITH SMALL OPENING AND PURULENT DRAINAGE WITH SOME BLEEDING, PRESENT ON ADMISSION. PT STATES HAD PROCEDURE 3 DAYS AGO AT [facility]. PT STATES THAT AREA IS VERY PAINFUL. HEIDI-PADS IN USE. RECOMMEND SURGICAL CONSULT. PT INDEPENDENT WITH BED MOBILITY AND HAS BELLAMY CATH. WILL SEE PRN. MARAVILLA IN AGREEMENT WITH PLAN OF CARE. Addendum: 02/26/19 at 0906 by DOMINIC RODRIGUEZ WNDNU Amended: Links added.
[2019-02-26] MEDS: INSULIN ASPART/LISPRO 100 UNIT/ML CARTRIDGE SQ SCH ×2 (09:05→18:25)
[2019-02-26] MEDS ORDERED: Z GUARD REMEDY 2 OZ OINT TP PRN (09:30)
--- NOTE | 2019-02-26 10:00 | NUR ---
MEDICAL DOSIMETRISTREPAIR SERVICE DISPATCHER NOTES: Pt transferred to MS 205 as ordered. Pt remains A/O x 3, not in any distress. IV line access kept patent & intact w/ no s/sx of infection/infiltration noted. FC draining to yellowish UOP. Pt refused wound care prior to leaving the unit despite of health teaching given. All belongings including valuables sent w/ pt. Endorsed to Ella RN for CHANDLER.
--- NOTE | 2019-02-26 10:03 | NUR ---
RN MS OPENING NOTES Patient received at this time, on room air, no sob noted. Patient a/o x3, patient denies pain at this time. Patient refused to have her wound checked, or taken a photo of, she stated that she is waiting for the wound care nurse to check her wound. Patient has all her belongings with her. Patient has 2 IV sites at this time, right and left #20. Bed at the lowest setting, call light within reach.
[2019-02-26] MEDS: ONDANSETRON HCL/PF 4 MG/2 ML VIAL IVP PRN (10:26)
[2019-02-26] MEDS ORDERED: POTASSIUM CHLORIDE 20 MEQ TAB.PRT.SR PO SCH (10:30)
--- NOTE | 2019-02-26 12:44 | NUR ---
WOUND CARE: SPOKE WITH SAFETY TECHNICIAN REGARDING SURGICAL CONSULT RECOMMENDATION. MSG LEFT FOR JOANNA QUINONES DNP REGARDING ABSCESS ON PERINEAL AREA AND DEFER TO DNP/MD FOR SURGICAL CONSULT REFERRAL. WILL SEE PT PRN.
--- NOTE | 2019-02-26 14:49 | NUR ---
SW met with pt. bedside for a social service consult since pt. had asked SW yesterday to come today. SW met with pt. bedside. Pt. had a male visiting her bedside. Pt. is not cooperative with SW during the assessment. Pt. stated, " I don't need to answer any questions," and requested for SW to leave. SW unable to assist pt. due to pt. not cooperating with SW. ANATOLIY updated pt's RN Ella.
[2019-02-26] MEDS: VANCOMYCIN 0.75 GM in IV D5W 250 ML IV SCH (16:19)
--- NOTE | 2019-02-26 18:46 | NUR ---
RN MS CLOSING NOTES Patient remains on room air, no sob noted, vital signs remain stable. Patient remains a/o x4, and gutierrez cath remains patent and is draining well. Patient has left FA #22 IV. Patient signed consent for tomorrows I&D perianal abscess possible fistulotomy surgery. To be NPO after midnight. Patient denies pain at this time. Bed at the lowest setting, call light within reach, will give report to NOC RN for CHANDLER.
--- NOTE | 2019-02-26 19:27 | NUR ---
RN MS OPENING NOTES RECEIVED PT IN BED AWAKE ALERT ORIENTED X4 BREATHING EVEN AND UNLABORED ON ROOM AIR, NO COMPLAINT OF PAIN OR DISCOMFORT AT THIS TIME, IV ACCESS ON THE R FA 22 WITH 1/2 @100ML/HR. PT CLEAN AND COMFORTABLE, BED IN LOWEST LOCKED POSITION, CALL LIGHT WITHIN REACH AT ALL TIMES WILL CONTINUE TO MONITOR FREQUENTLY
[2019-02-26] MEDS: INSULIN GLARGINE, 100 UNIT/ML CARTRIDGE SQ SCH (21:23)
[2019-02-27] MEDS: VANCOMYCIN 0.75 GM in IV D5W 250 ML IV SCH ×3 (00:58→17:11)
[2019-02-27] MEDS: MORPHINE SULFATE INJ 2 MG/ML DISP.SYRIN IV PRN ×4 (02:40→23:15)
[2019-02-27 04:00] VITALS: BP 116/69
[2019-02-27] MEDS: PIPERACILLIN /TAZOBACTAM 3.375 G in IV D5W 50 ML IV SCH ×3 (06:00→17:50)
--- NOTE | 2019-02-27 06:27 | NUR ---
RN MS CLOSING NOTES PT REMAINS IN BED AWAKE ALERT ORIENTED X4 BREATHING EVEN AND UNLABORED ON ROOM AIR, NO COMPLAINT OF PAIN OR DISCOMFORT AT THIS TIME, IV ACCESS ON THE R FA 22 WITH 1/2 @100ML/HR. REMAINS NPO AFTER MIDNIGHT READY TO BE TAKEN TO SURGERY. PT CLEAN AND COMFORTABLE, BED IN LOWEST LOCKED POSITION, CALL LIGHT WITHIN REACH AT ALL TIMES WILL ENDORSE TO DAY NURSE FOR CHANDLER
[2019-02-27 06:36] LABS: BASOPHILS % (AUTO) 0.4 % (0.0-2.0); EOSINOPHILS % (AUTO) 1.4 % (0.0-6.0); HEMATOCRIT 37 % (33-45); HEMOGLOBIN 12.3 g/dL (11.5-14.8); LYMPHOCYTES # (AUTO) 1.5 /CMM (0.8-4.8); LYMPHOCYTES % (AUTO) 24.3 % (20.0-44.0); MEAN CORPUSCULAR HGB CONC 34 g/dl (31.0-36.0); MEAN CORPUSCULAR VOLUME 90 fL (82-100); MONOCYTES # (AUTO) 0.5 /CMM (0.1-1.30); MONOCYTES % (AUTO) 8.6 % (2.0-12.0); NEUTROPHILS # (AUTO) 4.1 /CMM (1.8-8.9); NEUTROPHILS % (AUTO) 65.3 % (43.0-81.0); PLATELET COUNT (AUTO) 183 /CMM (150-450); RED BLOOD CELL COUNT(AUTO) 4.07 MIL/uL (4.0-5.2); WHITE BLOOD COUNT (AUTO) 6.3 K/uL (4.3-11.0)
[2019-02-27 07:05] LABS: CALCIUM, SERUM 8.3 mg/dL (8.5-10.1); CREATININE 0.6 mg/dL (0.6-1.3); MAGNESIUM 1.8 mg/dL (1.8-2.4); PHOSPHORUS 2.3 mg/dL (2.5-4.9); POTASSIUM 3.4 mmol/L (3.5-5.1)
[2019-02-27] MEDS ORDERED: MIDAZOLAM HCL 2 MG/2ML VIAL ONE (07:26)
[2019-02-27] MEDS ORDERED: ANESTHESIA TRAY IN PYXIS 1 EA TRAY MC ONE (07:28)
[2019-02-27] MEDS: PANTOPRAZOLE 40 MG TABLET.DR PO SCH (07:30)
[2019-02-27] MEDS: BLOOD SUGAR DIAGNOSTIC 1 EACH STRIP IN SCH ×4 (07:31→21:44)
--- NOTE | 2019-02-27 07:55 | NUR ---
MS RN PATIENT IN OR AT THIS TIME, FOR I AND D OF PERINEAL ABSCESS.
[2019-02-27 08:00] VITALS: BP 119/70
[2019-02-27] MEDS ORDERED: BUPIVACAINE 0.5 % PF 150 MG/30 ML VIAL ONE (08:04)
[2019-02-27] MEDS ORDERED: LIDOCAINE 1%-EPI 1:100,000 20 ML VIAL ONE (08:04)
--- NOTE | 2019-02-27 09:01 | NUR ---
ms rn patient just came from recovery, s/p i and d of perineal abscess., awake,alert,oriented x4,all needs attended.
--- NOTE | 2019-02-27 09:20 | NUR ---
ms dickerson breakfast served,due meds given, tolerated well.
[2019-02-27] MEDS: METOPROLOL TARTRATE 25 MG TABLET PO SCH ×2 (09:21→21:43)
[2019-02-27] MEDS: LACTOBACILLUS RHAMNOSUS GG 1 EACH CAP.SPRINK PO SCH ×2 (09:21→16:54)
[2019-02-27] MEDS: HYDROCODONE/APAP 5/325MG 1 EACH TABLET PO PRN ×2 (10:05→20:00)
[2019-02-27] MEDS: INSULIN ASPART/LISPRO 100 UNIT/ML CARTRIDGE SQ SCH ×2 (10:22→18:14)
--- NOTE | 2019-02-27 10:40 | NUR ---
ms tuan was seen by lm lawson/ orders made and carried out.
[2019-02-27] MEDS ORDERED: POTASSIUM CHLORIDE 20 MEQ TAB.PRT.SR PO ONE (11:00)
[2019-02-27] MEDS ORDERED: MAGNESIUM OXIDE 400 MG TABLET PO SCH (11:00)
[2019-02-27] MEDS: NEUTRA PHOS 1 POWD.PACKET PO SCH ×2 (11:24→16:54)
--- NOTE | 2019-02-27 12:10 | NUR ---
ms dickerson bs result-410, lm made aware,no order at this time, full coverage-10 units given.
[2019-02-27] MEDS: IV 1/2NS 1000 ML 1,000 ML IV PRN (12:52)
[2019-02-27] MEDS: INSULIN REGULAR, HUMAN 100 UNIT/ML 3 ML VIAL SQ PRN ×3 (13:15→21:57)
[2019-02-27] MEDS: ONDANSETRON HCL/PF 4 MG/2 ML VIAL IVP PRN (13:29)
[2019-02-27 16:00] VITALS: BP 128/68
--- NOTE | 2019-02-27 17:30 | NUR ---
ms dickerson bs - 223 - 4 units sq given.
--- NOTE | 2019-02-27 17:41 | NUR ---
ms rn on bed, no distress noted,all needs attended.
--- NOTE | 2019-02-27 19:40 | NUR ---
RN OPENING NOTES RECEIVED REPORT FROM DAYSHIFT RN WANDA. FOUND Pt AWAKE, RESTING IN BED. NO S/S OF ACUTE DISTRESS OR SOB NOTED. RESPIRATIONS EVEN AND UNLABORED. Pt IS A/OX4, VERBAL, ABLE TO MAKE NEEDS KNOWN. BELLAMY CATHETER IN PLACE, DRAINING WELL. IV ACCESS WAS PULLED OUT. WILL INSERT NEW IV ACCESS. SAFETY MEASURES IN PLACE. BED LOW, LOCKED, HOB ELEVATED, SIDE RAILS UP, CALL LIGHT AND BEDSIDE TABLE WITHIN REACH. WILL CONTINUE TO MONITOR Pt's CONDITION AND SAFETY THROUGHOUT THE NIGHT.
[2019-02-27 20:00] VITALS: BP 129/77
[2019-02-27] MEDS: INSULIN GLARGINE, 100 UNIT/ML CARTRIDGE SQ SCH (21:55)
--- NOTE | 2019-02-27 22:00 | NUR ---
RN NOTES STARTED NEW IV ON LHAND #22G. Pt IS A HARD STICK AND HAS HAD MULTIPLE PIV's INFILTRATED AND REMOVED. Pt WILL POSSIBLY BENEFIT FROM A MIDLINE INSERTION.
--- NOTE | 2019-02-27 23:35 | NUR ---
RN NOTES SPOKE WITH DR DAVILA ON THE PHONE, SAID OK FOR MIDLINE PLACEMENT ON Pt.
[2019-02-28] MEDS: PIPERACILLIN /TAZOBACTAM 3.375 G in IV D5W 50 ML IV SCH ×4 (00:45→17:41)
[2019-02-28] MEDS: VANCOMYCIN 0.75 GM in IV D5W 250 ML IV SCH ×3 (01:06→16:30)
[2019-02-28] MEDS: HYDROCODONE/APAP 5/325MG 1 EACH TABLET PO PRN ×4 (01:11→20:08)
[2019-02-28] MEDS: IV 1/2NS 1000 ML 1,000 ML IV PRN (04:23)
[2019-02-28] MEDS: MORPHINE SULFATE INJ 2 MG/ML DISP.SYRIN IV PRN ×4 (06:06→21:42)
[2019-02-28] MEDS: INSULIN REGULAR, HUMAN 100 UNIT/ML 3 ML VIAL SQ PRN ×4 (06:26→21:35)
[2019-02-28 06:27] LABS: BASOPHILS # (AUTO) 0.1 /CMM (0.0-0.2); BASOPHILS % (AUTO) 0.8 % (0.0-2.0); EOSINOPHILS % (AUTO) 1.6 % (0.0-6.0); HEMATOCRIT 34 % (33-45); HEMOGLOBIN 11.6 g/dL (11.5-14.8); LYMPHOCYTES # (AUTO) 2.3 /CMM (0.8-4.8); LYMPHOCYTES % (AUTO) 30.2 % (20.0-44.0); MEAN CORPUSCULAR HGB CONC 34 g/dl (31.0-36.0); MEAN CORPUSCULAR VOLUME 89 fL (82-100); MONOCYTES # (AUTO) 0.7 /CMM (0.1-1.30); NEUTROPHILS # (AUTO) 4.4 /CMM (1.8-8.9); NEUTROPHILS % (AUTO) 58.4 % (43.0-81.0); PLATELET COUNT (AUTO) 202 /CMM (150-450); RED BLOOD CELL COUNT(AUTO) 3.85 MIL/uL (4.0-5.2); WHITE BLOOD COUNT (AUTO) 7.5 K/uL (4.3-11.0)
--- NOTE | 2019-02-28 06:45 | NUR ---
RN CLOSING NOTES NO SIGNIFICANT CHANGES IN Pt's CONDITION. Pt REMAINS STABLE AT THIS TIME. NO S/S OF ACUTE DISTRESS OR SOB NOTED DURING THE NIGHT. Pt IS RESTING IN BED; RESPIRATIONS EVEN AN UNLABORED WITH EQUAL CHEST RISE AND FALL. BELLAMY CATHETER DRAINING WELL. MIDLINE WAS UNABLE TO GIVE BLOOD RETURN FOR LAB. ALL NEEDS MET AND ATTENDED TO. SAFETY MEASURES IN PLACE. WILL ENDORSE TO DAYSHIFT RN FOR Pt's CHANDLER.
[2019-02-28 06:55] LABS: CALCIUM, SERUM 8.6 mg/dL (8.5-10.1); CREATININE 0.7 mg/dL (0.6-1.3); MAGNESIUM 1.8 mg/dL (1.8-2.4); PHOSPHORUS 3.6 mg/dL (2.5-4.9); POTASSIUM 3.3 mmol/L (3.5-5.1)
--- NOTE | 2019-02-28 07:20 | NUR ---
MS RN OPENING NOTE RECEIVED PT IN BED, ALERT AND ORIENTED X4, DENIES CHEST PAIN, SOB, N/V. BREATHING IS EVEN AND UNLABORED ON ROOM AIR. NO ACUTE DISTRESSED NOTED AT THIS TIME. LEFT UPPER ARM #18G IS PATENT, CLEAN, DRY AND INTACT. PT IS REQUESTING PAIN MEDICATION FOR "GENERALIZED PAIN" RATED 9/10 AT THIS TIME. INFORMED PT THE NURSE WILL ADMINISTERED PAIN MEDICATION ORDERED PENDING VS CHECK, PT VERBALIZED UNDERSTANDING. ALL NEEDS ATTENDED TO. BED IS LOCKED AND IN LOWEST POSITION, SIDE RAILS UP X2, BED ALARM ON, CALL LIGHT AND POSSESSIONS WITHIN REACH.
[2019-02-28] MEDS: BLOOD SUGAR DIAGNOSTIC 1 EACH STRIP IN SCH ×4 (07:31→21:23)
[2019-02-28 08:00] VITALS: BP 140/77
[2019-02-28] MEDS: LACTOBACILLUS RHAMNOSUS GG 1 EACH CAP.SPRINK PO SCH ×2 (08:08→16:30)
[2019-02-28] MEDS: METOPROLOL TARTRATE 25 MG TABLET PO SCH ×2 (08:08→21:23)
[2019-02-28] MEDS: PANTOPRAZOLE 40 MG TABLET.DR PO SCH (08:08)
[2019-02-28] MEDS: NEUTRA PHOS 1 POWD.PACKET PO SCH (08:08)
[2019-02-28] MEDS: INSULIN ASPART/LISPRO 100 UNIT/ML CARTRIDGE SQ SCH ×2 (08:13→18:21)
--- NOTE | 2019-02-28 10:51 | NUR ---
MS RN NOTE PT REQUESTING MORPHINE IV FOR GENERALIZED PAIN, CURRENT BP: 126/69, HR: 78, SP02 97%
[2019-02-28] MEDS ORDERED: POTASSIUM CHLORIDE 20 MEQ TAB.PRT.SR PO ONE (11:00)
--- NOTE | 2019-02-28 18:24 | NUR ---
MS RN CLOSING NOTE PT IN BED, ALERT AND ORIENTED X4, DENIES CHEST PAIN, SOB, N/V. BREATHING IS EVEN AND UNLABORED ON ROOM AIR. NO ACUTE DISTRESSED NOTED AT THIS TIME. LEFT UPPER ARM #18G MIDLINE AND LEFT HAND #22G PERIPHERAL IV ARE PATENT, CLEAN, DRY AND INTACT. BELLAMY CATHETER NOTED TO BE DRAINING CLEAR,YELLOW URINE. ASSISTED WITH ADLS, PACKING STILL PRESENT IN ABSCESS, REINFORCED WITH MEPILEX. ALL NEEDS ATTENDED TO. BED IS LOCKED AND IN LOWEST POSITION, SIDE RAILS UP X2, BED ALARM ON, CALL LIGHT AND POSSESSIONS WITHIN REACH. WILL ENDORSE TO LOW VOLTAGE TECHNICIAN NURSE FOR CONTINUITY OF CARE.
--- NOTE | 2019-02-28 19:47 | NUR ---
RN OPENING NOTES RECEIVED REPORT FROM [employer] RNJIM. FOUND Pt AWAKE, SITTING IN CHAIR, WASHING SELF. Pt IS A/OX4, VERBAL, ABLE TO MAKE NEEDS KNOWN. NO S/S OF ACUTE DISTRESS OR SOB NOTED. RESPIRATIONS EVEN AND UNLABORED. BELLAMY CATHETER IN PLACE DRAINING WELL. IV ACCESS ON L HAND #22G & EKATERINA MIDLINE #18G, IVF 1/2 NS @100ML/HR, INFUSING WELL. SAFETY MEASURES IN PLACE. CALL LIGHT & BEDSIDE TABLE WITHIN REACH. WILL CONTINUE TO MONITOR Pt's CONDITION AND SAFETY THROUGHOUT THE NIGHT.
[2019-02-28 20:00] VITALS: BP 118/82
[2019-02-28 20:19] VITALS: BP 118/82
[2019-02-28] MEDS: INSULIN GLARGINE, 100 UNIT/ML CARTRIDGE SQ SCH (21:34)
--- NOTE | 2019-02-28 22:08 | NUR ---
RN NOTES HS ACCUCHECK BG 238. ADMINISTERED SCHEDULED LANTUS 15UN IN RUQ. AND ADMINISTERED ADDITIONAL 4UN OF REG INSULIN PER SLIDING SCALE IN LUQ. SNACKS PROVIDED AT BEDSIDE.
[2019-03-01] MEDS: PIPERACILLIN /TAZOBACTAM 3.375 G in IV D5W 50 ML IV SCH ×4 (01:00→17:09)
[2019-03-01] MEDS: IV 1/2NS 1000 ML 1,000 ML IV PRN ×2 (01:02→20:23)
[2019-03-01] MEDS: VANCOMYCIN 0.75 GM in IV D5W 250 ML IV SCH ×3 (01:13→16:15)
[2019-03-01] MEDS: HYDROCODONE/APAP 5/325MG 1 EACH TABLET PO PRN ×2 (02:34→08:13)
[2019-03-01] MEDS: MORPHINE SULFATE INJ 2 MG/ML DISP.SYRIN IV PRN ×3 (06:03→15:44)
[2019-03-01 06:27] LABS: CALCIUM, SERUM 8.3 mg/dL (8.5-10.1); CREATININE 0.6 mg/dL (0.6-1.3); POTASSIUM 3.6 mmol/L (3.5-5.1)
[2019-03-01] MEDS: BLOOD SUGAR DIAGNOSTIC 1 EACH STRIP IN SCH ×4 (06:36→21:07)
[2019-03-01] MEDS: INSULIN REGULAR, HUMAN 100 UNIT/ML 3 ML VIAL SQ PRN ×4 (06:36→20:46)
[2019-03-01 06:37] LABS: BASOPHILS % (AUTO) 0.6 % (0.0-2.0); EOSINOPHILS % (AUTO) 2.4 % (0.0-6.0); HEMATOCRIT 36 % (33-45); LYMPHOCYTES # (AUTO) 2.6 /CMM (0.8-4.8); LYMPHOCYTES % (AUTO) 33.5 % (20.0-44.0); MEAN CORPUSCULAR HGB CONC 33 g/dl (31.0-36.0); MEAN CORPUSCULAR VOLUME 91 fL (82-100); MONOCYTES # (AUTO) 0.8 /CMM (0.1-1.30); MONOCYTES % (AUTO) 9.7 % (2.0-12.0); NEUTROPHILS # (AUTO) 4.2 /CMM (1.8-8.9); NEUTROPHILS % (AUTO) 53.8 % (43.0-81.0); PLATELET COUNT (AUTO) 230 /CMM (150-450); RED BLOOD CELL COUNT(AUTO) 3.99 MIL/uL (4.0-5.2); WHITE BLOOD COUNT (AUTO) 7.8 K/uL (4.3-11.0)
--- NOTE | 2019-03-01 06:39 | NUR ---
RN NOTES AC ACCUCHECK BG 179. ADMINISTERED 3UN OF INSULIN PER SLIDING SCALE ON RT DELTOID.
--- NOTE | 2019-03-01 06:55 | NUR ---
RN CLOSING NOTES NO SIGNIFICANT CHANGES IN Pt's CONDITION. Pt REMAINS STABLE AT THIS TIME. NO S/S OF ACUTE DISTRESS OR SOB NOTED DURING THE NIGHT. BELLAMY CATHETER IN PLACE, DRAINING WELL. ALL NEEDS MET AND ATTENDED TO. SAFETY MEASURES IN PLACE. WILL ENDORSE TO DAYSHIFT RN FOR Pt's CHANDLER.
--- NOTE | 2019-03-01 07:24 | NUR ---
RN OPENING NOTE PT WAS RECIEVED IN BED AT LOWEST AND LOCKED POSITION WITH SIDE RAILS UP X2, A/O X4 BREATHING EVEN AND UNLABORED ON RA WITH NO S/S OF ANY DISTRESS OR PAIN NOTED AT THIS TIME, NOTED TO HAVE BELLAMY IN PLACE DRAINING, IV SITES ARE PATENT AND INTACT, NOTED TO HAVE PERIANAL ABSCESS WITH PLANS FOR SITZ BATHS STARTING TODAY, SAFETY PRECAUTIONS IN PLACE, CALL LIGHT WITHIN REACH, WILL MONITOR ACCORDINGLY
[2019-03-01 08:00] VITALS: BP 138/89
[2019-03-01] MEDS: PANTOPRAZOLE 40 MG TABLET.DR PO SCH (08:13)
[2019-03-01] MEDS: LACTOBACILLUS RHAMNOSUS GG 1 EACH CAP.SPRINK PO SCH ×2 (08:13→16:02)
[2019-03-01] MEDS: METOPROLOL TARTRATE 25 MG TABLET PO SCH ×2 (08:14→21:07)
[2019-03-01] MEDS: INSULIN ASPART/LISPRO 100 UNIT/ML CARTRIDGE SQ SCH ×2 (08:21→17:58)
--- NOTE | 2019-03-01 10:59 | NUR ---
RN NOTE PER HOSPITALIST DR.PASCUAL GÓMEZ TO Wilman/Amrit BELLAMY AT THIS TIME
--- NOTE | 2019-03-01 11:15 | NUR ---
Per KELSEY Erazo, pt. was cooperative and pleasant with her. Per KELSEY Erazo, [place] [facility] when discharged tomorrow. gave KELSEY Erazo the [place] [facility] [place] list and resources to give to the pt. along with the Homeless Patient Waiver Form to be signed by the pt. upon discharge. Pt. will need TAP card upon discharge. KELSEY Erazo was given the following resources to give to the pt: [facility], [address] [place] [address] ; [facility] [place], [address] [place] ; [facility] Homeless Resource Directory which includes food stamps, transitional housing, showers and hot meals etc; Mental Health clinics such as [facility] ; [facility] ; Health clinics;[facility] and Alcohol treatment centers such as [facility], ; [facility] Substance Abuse Hotline and [facility] .
[2019-03-01 12:00] VITALS: BP 138/78
[2019-03-01] MEDS ORDERED: POLYETHYLENE GLYCOL 3350 17 GM POWD.PACK PO PRN (16:00)
--- NOTE | 2019-03-01 18:18 | NUR ---
RN NOTE PT TRANSFERRED TO ROOM 307-1 AT THIS TIME
--- NOTE | 2019-03-01 18:26 | NUR ---
RN CLOSING NOTE PT IN BED AT LOWEST AND LOCKED POSITION WITH SIDE RAILS UP X2, TRANSFERRED TO ROOM 307-1 A/O X4 BREATHING EVEN AND UNLABORED WITH NO S/S OF ANY DISTRESS OR PAIN AT THIS TIME, IV SITES ARE PATENT AND INTACT, PERIANAL ABSCESS WITH SITZ BATH DONE TWICE TODAY THROUGHOUT SHIFT, SAFETY PRECAUTIONS IN PLACE, CALL LIGHT WITHIN REACH, ALL NEEDS ATTENDED TO, WILL ENDORSE TO NIGHT RN FOR CHANDLER.
--- NOTE | 2019-03-01 18:42 | NUR ---
RN NOTE PT REFUSED FOR PHOTOS OF WOUND TO BE TAKEN AT THIS TIME
[2019-03-01] MEDS: HYDROCODONE/APAP 10/325MG 1 EA TABLET PO PRN (19:27)
--- NOTE | 2019-03-01 19:34 | NUR ---
MS/RN RECEIVE PATIENT AWAKE, ALERT, ORIENTED, C/O PERINEAL PAIN 03/23. MEDICATED WITH NORCO 10 MG PO WAS ORDERED. WILL MONITOR.
[2019-03-01 20:28] VITALS: BP 115/85
[2019-03-01] MEDS: INSULIN GLARGINE, 100 UNIT/ML CARTRIDGE SQ SCH (21:09)
--- NOTE | 2019-03-01 21:54 | NUR ---
MS/RN OFFERED MIRALAX SO SHE CAN HAVE BOWEL MOVEMENT BUT REFUSED, PATIENT STATED SHE WANTS TO GO SLEEP TONIGHT.
[2019-03-02] MEDS: PIPERACILLIN /TAZOBACTAM 3.375 G in IV D5W 50 ML IV SCH ×4 (00:17→17:09)
[2019-03-02] MEDS: HYDROCODONE/APAP 10/325MG 1 EA TABLET PO PRN ×4 (00:23→18:34)
[2019-03-02] MEDS: VANCOMYCIN 0.75 GM in IV D5W 250 ML IV SCH ×3 (00:53→16:40)
--- NOTE | 2019-03-02 06:15 | NUR ---
MS/TELE/RN PATIENT IS AWAKE, COMFORTABLE, NO DISTRESS NOTED, CALL LIGHT IN REACH. ALL NEEDS ATTENDED AT THIS TIME, WILL CONTINUE TO MONITOR.
[2019-03-02] MEDS: INSULIN REGULAR, HUMAN 100 UNIT/ML 3 ML VIAL SQ PRN ×4 (06:47→22:01)
[2019-03-02] MEDS: BLOOD SUGAR DIAGNOSTIC 1 EACH STRIP IN SCH ×4 (06:47→21:56)
[2019-03-02 06:52] LABS: BASOPHILS % (AUTO) 0.3 % (0.0-2.0); EOSINOPHILS % (AUTO) 2.6 % (0.0-6.0); HEMATOCRIT 33 % (33-45); HEMOGLOBIN 10.8 g/dL (11.5-14.8); LYMPHOCYTES # (AUTO) 2.5 /CMM (0.8-4.8); LYMPHOCYTES % (AUTO) 33.6 % (20.0-44.0); MEAN CORPUSCULAR HGB CONC 33 g/dl (31.0-36.0); MEAN CORPUSCULAR VOLUME 91 fL (82-100); MONOCYTES # (AUTO) 0.7 /CMM (0.1-1.30); MONOCYTES % (AUTO) 9.2 % (2.0-12.0); NEUTROPHILS # (AUTO) 4.1 /CMM (1.8-8.9); NEUTROPHILS % (AUTO) 54.3 % (43.0-81.0); PLATELET COUNT (AUTO) 254 /CMM (150-450); RED BLOOD CELL COUNT(AUTO) 3.57 MIL/uL (4.0-5.2); WHITE BLOOD COUNT (AUTO) 7.5 K/uL (4.3-11.0)
--- NOTE | 2019-03-02 07:54 | NUR ---
MS RN OPENING NOTES RECEIVED PT SITTING UPRIGHT IN BED, RESTING COMFORTABLY. PT IS A/O X4, AFEBRILE. RESPIRATIONS ARE EVEN AND UNLABORED, NOT IN ANY ACUTE DISTRESS NOTED. PT C/O GENERALIZED PAIN 8/10 AND WILL MEDICATE ACCORDINGLY, NO C/O SOB, N/V. MIDLINE TO DAVE INTACT, NO INFILTRATION NOTED. DRESSING KEPT CLEAN AND DRY. SAFETY MEASURES ARE IN PLACE. WILL CONTINUE TO MONITOR THROUGHOUT SHIFT FOR CONTINUITY OF CARE.
[2019-03-02 08:00] VITALS: BP 135/83
[2019-03-02 08:07] VITALS: BP 135/83
[2019-03-02] MEDS: LACTOBACILLUS RHAMNOSUS GG 1 EACH CAP.SPRINK PO SCH ×2 (08:20→16:40)
[2019-03-02] MEDS: PANTOPRAZOLE 40 MG TABLET.DR PO SCH (08:20)
[2019-03-02] MEDS: METOPROLOL TARTRATE 25 MG TABLET PO SCH ×2 (08:20→21:48)
[2019-03-02] MEDS: DOCUSATE SODIUM 250 MG CAPSULE PO SCH (08:20)
[2019-03-02] MEDS: ONDANSETRON HCL/PF 4 MG/2 ML VIAL IVP PRN ×3 (08:23→19:57)
[2019-03-02] MEDS: INSULIN ASPART/LISPRO 100 UNIT/ML CARTRIDGE SQ SCH ×2 (08:31→17:39)
[2019-03-02 08:59] LABS: CALCIUM, SERUM 8.5 mg/dL (8.5-10.1); CREATININE 0.7 mg/dL (0.6-1.3); MAGNESIUM 1.5 mg/dL (1.8-2.4); PHOSPHORUS 3.5 mg/dL (2.5-4.9); POTASSIUM 3.8 mmol/L (3.5-5.1)
--- NOTE | 2019-03-02 09:17 | NUR ---
MS RN NOTES-- PER GARTH IN PHARMACY, TO GO AHEAD AND GIVE CURRENT VANCO DOSE VANCO TROUGH IS 12.
[2019-03-02] MEDS: Magnesium 1GM/D5W 100ML PREMIX 100 ML IV SCH ×2 (09:23→10:49)
--- NOTE | 2019-03-02 13:31 | NUR ---
MS RN NOTES-- PT ABLE TO MAKE NEEDS KNOWN. NEEDS MET AND RENDERED. PT DOES NOT APPEAR TO BE IN ANY APPARENT DISTRESS NOTED. WILL CONTINUE TO MONITOR.
[2019-03-02] MEDS: VORICONAZOLE 400 MG in IV D5W 250 ML IV SCH (15:36)
[2019-03-02 16:00] VITALS: BP 151/81
--- NOTE | 2019-03-02 18:30 | NUR ---
MS RN CLOSING NOTES ALL DUE MEDS GIVEN. NEEDS MET AND ANTICIPATED. PT IS A/O X2-, AFEBRILE. RESPIRATIONS ARE EVEN AND UNLABORED, NOT IN ANY ACUTE DISTRESS NOTED. NO FACIAL GRIMACING OR MOANING NOTED. IV TO RFA INTACT, NO INFILTRATION NOTED. DRESSING KEPT CLEAN AND DRY. SAFETY MEASURES ARE IN PLACE. WILL ENDORSE TO NEXT SHIFT FOR CONTINUITY OF CARE. Addendum: 03/02/19 at 1832 by SHIVA JOSEPH RN CORRECTION: MS RN CLOSING NOTES ALL DUE MEDS GIVEN. NEEDS MET AND ANTICIPATED. PT IS A/O X4, AFEBRILE. RESPIRATIONS ARE EVEN AND UNLABORED, NOT IN ANY ACUTE DISTRESS NOTED. DENIES ANY PAIN AT THIS TIME. NO C/O SOB, N/V.MIDLINE TO EKATERINA INTACT, NO INFILTRATION NOTED. DRESSING KEPT CLEAN AND DRY. SAFETY MEASURES ARE IN PLACE. WILL ENDORSE TO NEXT SHIFT FOR CONTINUITY OF CARE.
--- NOTE | 2019-03-02 19:05 | NUR ---
MS RN NOTES RECEIVED PT IN BED AWAKE AND ABLE TO MAKE NEEDS KNOWN WITH FAMILY AT BEDSIDE. PT A/O X3. RESPIRATIONS EVEN AND UNLABORED WITH NO S/S OF ACUTE DISTRESS OR SOB NOTED. NO COMPLAINTS OF PAIN AT THIS TIME. PT WITH EKATERINA MIDLINE RUNNING 1/2 NS @100 ML/HR AND PT ALSO WITH LHAND #22G SL. SAFETY MEASURES IN PLACE WITH BED IN LOWEST LOCKED POSITION WITH SIDE RAILS UP X2. CALL LIGHT WITHIN REACH. WILL CONTINUE TO MONITOR.
[2019-03-02 20:00] VITALS: BP 129/80
[2019-03-02] MEDS: IV 1/2NS 1000 ML 1,000 ML IV PRN (21:48)
[2019-03-02] MEDS: INSULIN GLARGINE, 100 UNIT/ML CARTRIDGE SQ SCH (22:02)
[2019-03-03] MEDS: PIPERACILLIN /TAZOBACTAM 3.375 G in IV D5W 50 ML IV SCH ×4 (00:13→17:07)
[2019-03-03] MEDS: HYDROCODONE/APAP 10/325MG 1 EA TABLET PO PRN ×3 (00:33→19:06)
[2019-03-03] MEDS: VANCOMYCIN 0.75 GM in IV D5W 250 ML IV SCH ×3 (01:12→17:07)
[2019-03-03] MEDS: VORICONAZOLE 400 MG in IV D5W 250 ML IV SCH (04:29)
[2019-03-03] MEDS: BLOOD SUGAR DIAGNOSTIC 1 EACH STRIP IN SCH ×4 (06:54→22:31)
[2019-03-03 06:55] LABS: BASOPHILS % (AUTO) 0.3 % (0.0-2.0); EOSINOPHILS % (AUTO) 2.1 % (0.0-6.0); HEMATOCRIT 35 % (33-45); HEMOGLOBIN 11.6 g/dL (11.5-14.8); LYMPHOCYTES # (AUTO) 1.9 /CMM (0.8-4.8); LYMPHOCYTES % (AUTO) 21.2 % (20.0-44.0); MEAN CORPUSCULAR HGB CONC 33 g/dl (31.0-36.0); MEAN CORPUSCULAR VOLUME 91 fL (82-100); MONOCYTES # (AUTO) 0.7 /CMM (0.1-1.30); MONOCYTES % (AUTO) 8.5 % (2.0-12.0); NEUTROPHILS % (AUTO) 67.9 % (43.0-81.0); PLATELET COUNT (AUTO) 269 /CMM (150-450); RED BLOOD CELL COUNT(AUTO) 3.83 MIL/uL (4.0-5.2); WHITE BLOOD COUNT (AUTO) 8.8 K/uL (4.3-11.0)
[2019-03-03 07:01] LABS: CALCIUM, SERUM 8.5 mg/dL (8.5-10.1); CREATININE 0.8 mg/dL (0.6-1.3); MAGNESIUM 1.8 mg/dL (1.8-2.4); PHOSPHORUS 3.5 mg/dL (2.5-4.9); POTASSIUM 4.3 mmol/L (3.5-5.1)
[2019-03-03] MEDS: INSULIN REGULAR, HUMAN 100 UNIT/ML 3 ML VIAL SQ PRN ×4 (07:07→22:36)
--- NOTE | 2019-03-03 07:39 | NUR ---
M/S RN NOTES PATIENT AWAKE, LYING IN BED. ALERT AND ORIENTED X4, NO RESPIRATORY DISTRESS, PAIN TOLERABLE AT THIS, GIVEN NORCO BY MORNING NURSE AT 0600. PATIENT'S NEEDS ATTENDED. SKIN WARM TO TOUCH, IVF OF 1/2 NS INFUSING AT 100ML/HR, INTACT AND PATENT, NO REDNESS, NO INFILTRATION NOTED. BED ON LOWEST LOCKED POSITION, CALL LIGHT WITHIN REACH. WILL CONTINUE TO MONITOR.
--- NOTE | 2019-03-03 07:41 | NUR ---
MS RN NOTES PT IN BED AWAKE AND ABLE TO MAKE NEEDS KNOWN. PT A/O X3. RESPIRATIONS EVEN AND UNLABORED WITH NO S/S OF ACUTE DISTRESS OR SOB NOTED THROUGHOUT SHIFT. NO COMPLAINTS OF PAIN AT THIS TIME. PT WITH EKATERINA MIDLINE RUNNING 1/2 NS @100 ML/HR AND PT ALSO WITH LHAND #22G SL. SAFETY MEASURES IN PLACE WITH BED IN LOWEST LOCKED POSITION WITH SIDE RAILS UP X2. CALL LIGHT WITHIN REACH. WILL ENDORSE TO ONCOMING NURSE FOR CHANDLER.
[2019-03-03 08:00] VITALS: BP 113/71
[2019-03-03] MEDS: LACTOBACILLUS RHAMNOSUS GG 1 EACH CAP.SPRINK PO SCH ×2 (08:21→17:09)
[2019-03-03] MEDS: DOCUSATE SODIUM 250 MG CAPSULE PO SCH (08:21)
[2019-03-03] MEDS: PANTOPRAZOLE 40 MG TABLET.DR PO SCH (08:21)
[2019-03-03] MEDS: METOPROLOL TARTRATE 25 MG TABLET PO SCH ×2 (08:22→22:31)
[2019-03-03] MEDS: ONDANSETRON HCL/PF 4 MG/2 ML VIAL IVP PRN (09:32)
[2019-03-03] MEDS: INSULIN ASPART/LISPRO 100 UNIT/ML CARTRIDGE SQ SCH ×2 (10:20→18:30)
[2019-03-03] MEDS ORDERED: ASPIRIN/ACETAMINOPHEN/CAFFEINE 1 EACH TABLET PO PRN (13:00)
[2019-03-03] MEDS: IV 1/2NS 1000 ML 1,000 ML IV PRN (14:15)
--- NOTE | 2019-03-03 15:17 | NUR ---
MS FINANCIAL ACCOUNTING ANALYST NURSE NOTE SPOKE WITH ON THE PHONE FOR UPDATE THAT WAS REQUESTED BY PRIMARY HOSPITALIST , PER HE WILL ROUND ON THE PT TOMORROW TO POSSIBLY CLEAR FOR D/C.
[2019-03-03 16:00] VITALS: BP 112/75
[2019-03-03] MEDS: METOCLOPRAMIDE HCL 10 MG/2 ML VIAL IV PRN (16:03)
--- NOTE | 2019-03-03 16:12 | NUR ---
M/S RN NOTES PATIENT VOMITED X3, PATIENT GIVEN REGLAN IV, WILL REASSESS PATIENT AND WILL CONTINUE TO MONITOR.
--- NOTE | 2019-03-03 18:40 | NUR ---
M/S RN NOTES PATIENT'S BS AT 163, GIVEN HUMULIN 2 UNITS PER SLIDING SCALE, HELD LISPRO ORDERED AT 1830, PATIENT DID NOT EAT DINNER DUE TO NAUSEA AND VOMITING. PATIENT DID STATE THAT VOMITING STOPPED AT THIS TIME.
--- NOTE | 2019-03-03 19:30 | NUR ---
M/S RN NOTES PATIENT RESTING IN BED, NO RESPIRATORY DISTRESS NOTED. PAIN C/O HEADACHE, PAIN TOLERABLE AT THIS TIME, NORCO GIVEN AT 1900. PATIENT'S NEEDS ATTENDED. BED ON LOWEST LOCKED POSITION, CALL LIGHT WITHIN REACH. WILL ENDORSE TO ONCOMING NURSE.
[2019-03-03 20:00] VITALS: BP 129/74
[2019-03-03] MEDS: VORICONAZOLE 200 MG TABLET PO SCH (22:30)
[2019-03-03] MEDS: HYDROCODONE/APAP 5/325MG 1 EACH TABLET PO PRN (22:32)
[2019-03-03] MEDS: INSULIN GLARGINE, 100 UNIT/ML CARTRIDGE SQ SCH (22:38)
--- NOTE | 2019-03-03 22:51 | NUR ---
MS RN NOTES RECEIVED PATIENT AWAKE IN BED WITH NO DISTRESS NOTED. CALL LIGHT WITHIN REACH. NO C/O PAIN OR DISCOMFORT. PERIPHERAL LINE INTACT AND PATENT. ENCOURAGED USE OF CALL LIGHT FOR ASSISTANCE AND DEMONSTRATED GOOD UNDERSTANDING. BED IN LOW LOCK SETTING. ROOM FREE OF CLUTTER AND BELONGINGS KEPT NEAR BEDSIDE. WILL CONTINUE TO MONITOR.
[2019-03-04] MEDS: PIPERACILLIN /TAZOBACTAM 3.375 G in IV D5W 50 ML IV SCH ×3 (00:14→12:12)
[2019-03-04] MEDS: IV 1/2NS 1000 ML 1,000 ML IV PRN (00:20)
[2019-03-04] MEDS: HYDROCODONE/APAP 10/325MG 1 EA TABLET PO PRN ×2 (00:28→06:23)
[2019-03-04] MEDS: METOCLOPRAMIDE HCL 10 MG/2 ML VIAL IV PRN ×3 (00:28→15:08)
[2019-03-04] MEDS: VANCOMYCIN 0.75 GM in IV D5W 250 ML IV SCH ×2 (00:33→08:51)
[2019-03-04] MEDS: ONDANSETRON HCL/PF 4 MG/2 ML VIAL IVP PRN ×2 (03:17→12:12)
[2019-03-04] MEDS: INSULIN REGULAR, HUMAN 100 UNIT/ML 3 ML VIAL SQ PRN (06:26)
--- NOTE | 2019-03-04 06:33 | NUR ---
MS RN NOTES PATIENT AWAKE IN BED WITH NO DISTRESS NOTED. CALL LIGHT WITHIN REACH. NO FURTHER C/O PAIN OR DISCOMFORT. PERIPHERAL LINES INTACT AND PATENT. ALL DUE MEDS GIVEN ORDERED WITH NO ASE NOTED. BED IN LOW LOCK SETTING. ALL BELONGINGS KEPT NEAR BEDSIDE. WILL CONTINUE TO MONITOR.
[2019-03-04] MEDS: PANTOPRAZOLE 40 MG TABLET.DR PO SCH (06:49)
[2019-03-04] MEDS: BLOOD SUGAR DIAGNOSTIC 1 EACH STRIP IN SCH ×2 (06:49→12:12)
[2019-03-04 07:25] LABS: BASOPHILS % (AUTO) 0.4 % (0.0-2.0); EOSINOPHILS % (AUTO) 2.1 % (0.0-6.0); HEMATOCRIT 34 % (33-45); HEMOGLOBIN 11.2 g/dL (11.5-14.8); LYMPHOCYTES # (AUTO) 1.8 /CMM (0.8-4.8); LYMPHOCYTES % (AUTO) 24.3 % (20.0-44.0); MEAN CORPUSCULAR HGB CONC 33 g/dl (31.0-36.0); MEAN CORPUSCULAR VOLUME 92 fL (82-100); MONOCYTES # (AUTO) 0.8 /CMM (0.1-1.30); MONOCYTES % (AUTO) 11.4 % (2.0-12.0); NEUTROPHILS # (AUTO) 4.6 /CMM (1.8-8.9); NEUTROPHILS % (AUTO) 61.8 % (43.0-81.0); PLATELET COUNT (AUTO) 306 /CMM (150-450); WHITE BLOOD COUNT (AUTO) 7.4 K/uL (4.3-11.0)
--- NOTE | 2019-03-04 07:25 | NUR ---
MS RN OPENING NOTE PATIENT IN BED RESTING COMFORTABLY. PATIENT BREATHING ON ROOM AIR SATURATING >95% SPO2. PATIENT IN NO ACUTE DISTRESS. NO SOB NOTED. PATIENT BREATHING IS EVEN AND UNLABORED. BED IS LOCKED AND IN LOWEST POSITION. CALL LIGHT WITHIN REACH. WILL CONTINUE TO MONITOR.
[2019-03-04 07:47] LABS: CALCIUM, SERUM 8.4 mg/dL (8.5-10.1); CREATININE 0.7 mg/dL (0.6-1.3)
[2019-03-04 08:00] VITALS: BP 118/73
--- NOTE | 2019-03-04 08:37 | NUR ---
WOUND CARE CONSULT/FOLLOW UP: PT PRESENTS WITH SURGICAL WOUND TO LEFT PERINEUM WHICH IS PINK/RED IN COLOR, NO DRAINAGE OR ODOR NOTED. DEFER TO SURGEON. WILL SEE PRN. PT IS AMBULATORY AND CONTINENT AND SHE STATES IS DOING SITZ BATHS. Addendum: 03/04/19 at 0839 by DOMINIC RODRIGUEZ WNDNU Amended: Links added.
[2019-03-04] MEDS: VORICONAZOLE 200 MG TABLET PO SCH (08:53)
[2019-03-04] MEDS: LACTOBACILLUS RHAMNOSUS GG 1 EACH CAP.SPRINK PO SCH (08:53)
[2019-03-04 08:54] VITALS: BP 118/73
[2019-03-04] MEDS: METOPROLOL TARTRATE 25 MG TABLET PO SCH (08:54)
[2019-03-04] MEDS: DOCUSATE SODIUM 250 MG CAPSULE PO SCH (08:54)
[2019-03-04] MEDS: INSULIN ASPART/LISPRO 100 UNIT/ML CARTRIDGE SQ SCH (09:02)
--- NOTE | 2019-03-04 12:04 | NUR ---
ANATOLIY requested for pt's KELSEY Rivero to ask pt. if she will see social work administrator regarding discharge plan since pt. has been refusing and uncooperative with SW the several times SW has attempted to meet with the Pt. Per KELSEY Rivero, pt. does not want to speak with SW stating, " she cannot do anything for me." " I am not going to go to emergency alf, the doctor said I need foster care case manager to find me placement." ANATOLIY and KELSEY Rivero updated foster care case manager Samia regarding pt. wanting to speak with foster care case manager regarding placement. Homeless Patient Waiver form was placed in pt's chart to sign upon discharge and KELSEY Rivero notified.
--- NOTE | 2019-03-04 13:00 | NUR ---
MS RN NOTES ASKED PATIENT IF SHE WANTED SITZ BATH. PATIENT. PATIENT REFUSED AT THIS TIME. EXPLAINED RISKS VS BENEFITS. PATIENT STILL REFUSES. WILL CONTINUE TO MONITOR.
[2019-03-04] MEDS ORDERED: ACET325T53 PO (13:12)
[2019-03-04] MEDS ORDERED: VORI200T PO (13:12)
[2019-03-04] MEDS: HYDROCODONE/APAP 5/325MG 1 EACH TABLET PO PRN (15:09)
--- NOTE | 2019-03-04 17:44 | NUR ---
MS RF TECHNICIAN NOTE PATIENT MEDICALLY STABLE FOR DISCHARGE. PATIENT VITAL SIGNS WNL. PATIENT IN NO ACUTE DISTRESS. NO SOB NOTED. PATIENT IN NO PAIN AT THIS TIME. PATIENT IS NOT NAUSEOUS AT THIS TIME. SPOKEN TO BY CASE MANAGEMENT. PATIENT REFUSED TO SPEAK TO ASSOCIATE SOFTWARE DEVELOPER. PATIENT IS HOMELESS, RESOURCES PROVIDED FOR SHELTERS BUT PATIENT REFUSES RESOURCES GIVEN TO HER. PATIENT SIGNED HOMELESS WAIVER FORM. GIVEN TAP CARD FOR BUS TRANSPORTATION. THERESE MCKENNA ACCOMPANIED PATIENT OUT OF HOSPITAL BY WHEELCHAIR. PATIENT LEFT WITH FRIEND WHO WAS HELPING HER WITH HER BELONGINGS. BELONGINGS LIST SIGNED. ALL BELONGINGS WITH PATIENT. DC INSTRUCTIONS PROVIDED. PATIENT VERBALIZED UNDERSTANDING. DC PACKET WITH PATIENT. PATIENT ONLY ALLOWED FOR PERIANAL AREA OF SKIN TO BE ASSESSED WHERE WOUND IS AT. WOUND SITE WAS KEPT CLEAN AND DRY. PATIENT REFUSED TO HAVE REST OF SKIN ON BODY ASSESSED. PATIENT IV REMOVED. ID BAND REMOVED. ALL NURSING NEEDS MET. PATIENT VERBALIZED NEEDS DURING SHIFT, NEEDS AND CONCERNS WERE ADDRESSED. MD AWARE OF DISCHARGE.
== END 2019-03-04 17:40 | disposition home or self-care (01) | DRG 420 ==
LOC: ER 00:59 → ICU 04:09 → MEDSG2 02-26 09:59 → MED 03-01 17:56
PROVIDERS: ADMIT Internal Medicine; ATTEND Hospitalist
PROC: 0JBB0ZZ Excision of Perineum Subcutaneous Tissue and Fascia, Open Approach (ICD-10-PCS; 2019-02-27)
PROC: 05HA33Z Insertion of Infusion Device into Left Brachial Vein, Percutaneous Approach (ICD-10-PCS; principal; 2019-02-28)
DX: E10.10 Type 1 diabetes mellitus with ketoacidosis without coma (principal); N17.0 Acute kidney failure with tubular necrosis; G93.41 Metabolic encephalopathy; K85.90 Acute pancreatitis without necrosis or infection, unspecified; J18.9 Pneumonia, unspecified organism; K31.84 Gastroparesis; E10.43 Type 1 diabetes mellitus with diabetic autonomic (poly)neuropathy; E83.42 Hypomagnesemia; E87.1 Hypo-osmolality and hyponatremia; D72.829 Elevated white blood cell count, unspecified; K27.9 Peptic ulcer, site unspecified, unspecified as acute or chronic, without hemorrhage or perforation; K21.9 Gastro-esophageal reflux disease without esophagitis; I10 Essential (primary) hypertension; E86.0 Dehydration; E87.6 Hypokalemia; Z59.0 Homelessness; Z79.4 Long term (current) use of insulin; Z90.49 Acquired absence of other specified parts of digestive tract; Z91.19 Patient's noncompliance with other medical treatment and regimen; Z91.14 Patient's other noncompliance with medication regimen; N20.0 Calculus of kidney; K59.00 Constipation, unspecified; E83.39 Other disorders of phosphorus metabolism; L02.215 Cutaneous abscess of perineum; F41.0 Panic disorder [episodic paroxysmal anxiety]; D35.02 Benign neoplasm of left adrenal gland; B37.49 Other urogenital candidiasis
CPT/HCPCS: 36415; 36600; 71045-TC; 80048-TC; 80053-TC; 80061-TC; 80076-TC; 80202-TC; 81000-TC; 82010-TC; 82803-TC; 82962-TC; 83605-TC; 83735-TC; 83935-TC; 84100-TC; 84443-TC; 84703-TC; 85025-TC; 87070-TC; 87081-TC; 97116-TC; 97530-TC; A4216; A6253; A6407; G0378; J0330; J1100; J1815; J2250; J2270; J2405; J2543; J2704; J2765; J3370; J3465; J3475; J3490; J7030; J7050; J7060

== ENCOUNTER 2020-11-10 10:51 | Emergency (ER) | payer OTHER ==
[~2020-11-10] VITALS: Ht 165.1 cm; Wt 74.8 kg
[~2020-11-10 10:51] MED LIST: ACET325T53 PO; VORI200T PO
--- NOTE | 2020-11-10 11:18 | NUR ---
BIB RA 39 FROM CLINIC FOR BLOOD SUGAR ABOVE 3OO. PT AAOX4, VSS. RR EVEN & UNLABORED. DENIES CP, SOB, DIZZINESS, N/V AT THIS TIME. PT SEEN & EVAL'D BY DR. BUCIO. WILL CONT TO MONITOR.
[2020-11-10 11:47] LABS: BASOPHILS % (AUTO) 0.4 % (0.0-2.0); EOSINOPHILS % (AUTO) 0.2 % (0.0-6.0); HEMATOCRIT 40 % (33-45); HEMOGLOBIN 12.9 g/dL (11.5-14.8); LYMPHOCYTES # (AUTO) 1.4 /CMM (0.8-4.8); LYMPHOCYTES % (AUTO) 18.9 % (20.0-44.0); MEAN CORPUSCULAR HGB CONC 32 g/dl (31.0-36.0); MEAN CORPUSCULAR VOLUME 90 fL (82-100); MONOCYTES # (AUTO) 0.4 /CMM (0.1-1.30); MONOCYTES % (AUTO) 4.8 % (2.0-12.0); NEUTROPHILS # (AUTO) 5.7 /CMM (1.8-8.9); NEUTROPHILS % (AUTO) 75.7 % (43.0-81.0); PLATELET COUNT (AUTO) 212 /CMM (150-450); RED BLOOD CELL COUNT(AUTO) 4.43 MIL/uL (4.0-5.2); WHITE BLOOD COUNT (AUTO) 7.6 K/uL (4.3-11.0)
[2020-11-10 11:57] LABS: CALCIUM, SERUM 8.8 mg/dL (8.5-10.1); CARBON DIOXIDE 25 mmol/L (21-32); CHLORIDE 102 mmol/L (98-107); CREATININE 0.8 mg/dL (0.6-1.3); GLUCOSE 226 mg/dL (74-106); POTASSIUM 3.7 mmol/L (3.5-5.1); SODIUM SERUM 136 mmol/L (136-145); UREA NITROGEN, BLOOD 11 mg/dL (7-18)
[2020-11-10 12:04] LABS: ALANINE AMINOTRANSFERASE 16 U/L (12-78); ALBUMIN 3.2 g/dL (3.4-5.0); ALKALINE PHOSPHATASE 85 U/L (46-116); ASPARTATE AMINOTRANSFERASE 12 U/L (15-37); BILIRUBIN,DIRECT 0.1 mg/dL (0.0-0.2); BILIRUBIN,TOTAL 0.1 mg/dL (0.2-1.0)
[2020-11-10] MEDS ORDERED: IV NS 0.9% 1,000 ML BAG IV ONE (13:00)
--- NOTE | 2020-11-10 14:16 | NUR ---
Dr Brewer is made aware of patient`s blood sugar of 53. Per Dr Brweer the patient is provided witb a sandwitch and apple juice. No other orders at this time. Primary nurse made aware too.
[2020-11-10 15:45] VITALS: BP 117/68
--- NOTE | 2020-11-10 15:45 | NUR ---
Patient discharged to home in stable condition. Written and verbal after care instructions given. Patient verbalizes understanding of instruction. IV removed. Catheter intact and site benign. Pressure and 4x4 applied to site. No bleeding noted.
== END 2020-11-10 15:45 | disposition home or self-care (01) ==
LOC: ER 10:51
DX: R07.89 Other chest pain (principal); E11.65 Type 2 diabetes mellitus with hyperglycemia; I10 Essential (primary) hypertension; K21.9 Gastro-esophageal reflux disease without esophagitis; Z79.899 Other long term (current) drug therapy
CPT/HCPCS: 36415; 71045; 80048; 80076; 82962; 84484 ×2; 85025; 85378; 93005; 96360; 99285; J7030

== ENCOUNTER 2021-06-25 12:49 | Emergency (ER) | payer OTHER ==
[~2021-06-25] VITALS: Ht 160 cm; Wt 74.8 kg
--- NOTE | 2021-06-25 12:50 | NUR ---
PT WENT TO A CLINIC FOR LUE PAIN X1WEEK AGO ON AND OFF. BLOOD GLUCOSE AT THE CLINIC WAS 509 AN RA 39 BRROUGH IN PATIENT. PATIENT IS A&OX4. VITAL SIGNS WITHIN NORMAL LIMITS.
--- NOTE | 2021-06-25 13:30 | NUR ---
BLOOD GLUCOSE WAS TAKEN 487. DR COUGHLIN WAS NOTIFIED.
[2021-06-25] MEDS ORDERED: IV NS 0.9% 1,000 ML BAG IV ONE (14:30)
[2021-06-25 14:57] LABS: BASOPHILS # (AUTO) 0.1 K/uL (0.0-0.2); BASOPHILS % (AUTO) 0.4 % (0.0-2.0); EOSINOPHILS % (AUTO) 0.4 % (0.0-6.0); HEMATOCRIT 42 % (33-45); HEMOGLOBIN 13.5 g/dL (11.5-14.8); LYMPHOCYTES # (AUTO) 2.1 K/uL (0.8-4.8); LYMPHOCYTES % (AUTO) 17.8 % (20.0-44.0); MEAN CORPUSCULAR HGB CONC 32 g/dl (31.0-36.0); MEAN CORPUSCULAR VOLUME 88 fL (82-100); MONOCYTES # (AUTO) 0.6 K/uL (0.1-1.30); MONOCYTES % (AUTO) 5.4 % (2.0-12.0); NEUTROPHILS # (AUTO) 8.9 K/uL (1.8-8.9); PLATELET COUNT (AUTO) 282 K/uL (150-450); RED BLOOD CELL COUNT(AUTO) 4.81 MIL/uL (4.0-5.2); WHITE BLOOD COUNT (AUTO) 11.7 K/uL (4.3-11.0)
[2021-06-25 15:20] LABS: CALCIUM, SERUM 8.7 mg/dL (8.5-10.1); CARBON DIOXIDE 24 mmol/L (21-32); CHLORIDE 96 mmol/L (98-107); CREATININE 0.9 mg/dL (0.6-1.3); SODIUM SERUM 130 mmol/L (136-145); UREA NITROGEN, BLOOD 14 mg/dL (7-18)
[2021-06-25 15:23] LABS: GLUCOSE 410 mg/dL (74-106)
--- NOTE | 2021-06-25 15:24 | NUR ---
pt has a blood glucose of 410. dr diaz was notified.
[2021-06-25] MEDS ORDERED: INSULIN REGULAR, HUMAN 100 UNIT/ML 10 ML VIAL SQ ONE (16:00)
[2021-06-25] MEDS ORDERED: IBUPROFEN 400 MG TABLET PO ONE (16:00)
[2021-06-25] MEDS ORDERED: ACETAMINOPHEN ES 500 MG TABLET PO ONE (16:00)
[2021-06-25] MEDS ORDERED: ACETAMINOPHEN ES 500 MG TABLET ONE (16:30)
[2021-06-25] MEDS ORDERED: IBUPROFEN 400 MG TABLET ONE (16:31)
[2021-06-25] MEDS ORDERED: INSULIN REGULAR, HUMAN 100 UNIT/ML 10 ML VIAL ONE (16:33)
--- NOTE | 2021-06-25 18:02 | NUR ---
PT WAS GIVEN AND UNDERSTOOD DISCHARGE INSTRUCTIONS. PT IS A&OX4 AND STABLE. VITAL SIGNS WITHIN NORMAL LIMITS.
[2021-06-25 18:05] VITALS: BP 147/85
== END 2021-06-25 17:43 | disposition home or self-care (01) ==
LOC: ER 12:52
DX: E11.65 Type 2 diabetes mellitus with hyperglycemia (principal); I10 Essential (primary) hypertension; K21.9 Gastro-esophageal reflux disease without esophagitis; E78.00 Pure hypercholesterolemia, unspecified
CPT/HCPCS: 36415; 71045; 80048; 82962; 83880; 84484; 85025; 85730; 93005 ×2; 96360; 96372; 99285; J1815; J7030